=== PATIENT | male | born 1970 | race Caucasian/White ===

== ENCOUNTER 2023-08-11 17:00 | Inpatient (IN) | payer MEDICARE, OTHER ==
[~2023-08-11] VITALS: Ht 167.6 cm; Wt 67.1 kg
[2023-08-11 18:22] LABS: BASOPHILS # (AUTO) 0.1 K/uL (0.0-0.2); BASOPHILS % (AUTO) 0.8 % (0.0-2.0); EOSINOPHILS # (AUTO) 0.5 K/uL (0.0-0.7); EOSINOPHILS % (AUTO) 3.7 % (0.0-6.0); HEMATOCRIT 29 % (39-51); HEMOGLOBIN 9.1 g/dL (13.5-17.5); LYMPHOCYTES # (AUTO) 0.7 K/uL (0.8-4.8); MEAN CORPUSCULAR HEMOGLOBIN 27 PG (26.0-33.0); MEAN CORPUSCULAR HGB CONC 31 g/dl (31.0-36.0); MEAN CORPUSCULAR VOLUME 86 fL (80-96); MONOCYTES % (AUTO) 7.3 % (2.0-12.0); NEUTROPHILS # (AUTO) 11.4 K/uL (1.8-8.9); NEUTROPHILS % (AUTO) 83.2 % (43.0-81.0); PLATELET COUNT (AUTO) 548 K/uL (150-450); RED BLOOD CELL COUNT(AUTO) 3.37 MIL/uL (4.5-6.0); WHITE BLOOD COUNT (AUTO) 13.6 K/uL (4.3-11.0)
[2023-08-11 18:40] LABS: D-DIMER 0.98 mg/L(FEU (0.17-0.50); INR 1.01 (0.91-1.10); PARTIAL THROMBOPLASTIN TIME 24.8 SEC (24.3-34.3); PROTHROMBIN TIME 10.7 SECS (9.2-11.1)
[2023-08-11 18:51] LABS: LACTIC ACID 2.2 mmol/L (0.4-2.0)
[2023-08-11] MEDS ORDERED: BUPR2TAB3 SL (18:52)
[2023-08-11] MEDS ORDERED: SODI473S9 TP (18:52)
[2023-08-11] MEDS ORDERED: ASCO-340 PO (18:52)
[2023-08-11] MEDS ORDERED: CHOL200059 PO (18:52)
[2023-08-11] MEDS ORDERED: CETI10TA14 PO (18:52)
[2023-08-11] MEDS ORDERED: CYAN500T9 PO (18:52)
[2023-08-11] MEDS ORDERED: ALBU2.5V38 IH (18:52)
[2023-08-11] MEDS ORDERED: TIZA4TAB5 PO (18:52)
[2023-08-11] MEDS ORDERED: XEROFORM TP (18:52)
[2023-08-11] MEDS ORDERED: MAGN400O6 PO (18:52)
[2023-08-11] MEDS ORDERED: SENN-261 PO (18:52)
[2023-08-11] MEDS ORDERED: POLY17PO4 PO (18:52)
[2023-08-11] MEDS ORDERED: GABA600T12 PO (18:52)
[2023-08-11] MEDS ORDERED: NA P133E RC (18:52)
[2023-08-11] MEDS ORDERED: ASPI-1420 PO (18:52)
[2023-08-11] MEDS ORDERED: INSU100V7 SQ (18:52)
[2023-08-11] MEDS ORDERED: QUET50TA PO (18:52)
[2023-08-11] MEDS ORDERED: INSU100V39 SQ ×2 (18:52)
[2023-08-11] MEDS ORDERED: ACET-868 PO (18:52)
[2023-08-11] MEDS ORDERED: POVI3780 TP (18:52)
[2023-08-11] MEDS ORDERED: CALC3.7S BNOSTRILS (18:52)
[2023-08-11] MEDS ORDERED: CHLO473M5 MM (18:52)
[2023-08-11] MEDS ORDERED: LIPA1CAP15 PO (18:52)
[2023-08-11] MEDS ORDERED: QUET100T PO (18:52)
[2023-08-11] MEDS ORDERED: HYDR-4316 PO (18:52)
[2023-08-11] MEDS ORDERED: OXYC10TA49 PO (18:52)
[2023-08-11] MEDS ORDERED: ERGO800011 PO (18:52)
[2023-08-11] MEDS ORDERED: PANT40SU2 PO (18:52)
[2023-08-11] MEDS ORDERED: BISA10SU11 RC (18:52)
[2023-08-11] MEDS ORDERED: ACET-2605 PO (18:52)
[2023-08-11] MEDS ORDERED: DULO30CA2 PO (18:52)
[2023-08-11] MEDS ORDERED: DAPT350V IV (18:52)
[2023-08-11] MEDS ORDERED: OXYCODONE HCL PO (18:52)
[2023-08-11] MEDS ORDERED: FURO10SO IV (18:52)
[2023-08-11] MEDS ORDERED: LEVO25TA9 PO (18:52)
[2023-08-11] MEDS ORDERED: ATOR10TA GT (18:52)
[2023-08-11] MEDS ORDERED: MIRT-91 PO (18:52)
[2023-08-11] MEDS ORDERED: METO25TA6 PO (18:54)
[2023-08-11 18:57] LABS: ALANINE AMINOTRANSFERASE 27 U/L (12-78); ALBUMIN 2.4 g/dL (3.4-5.0); ALKALINE PHOSPHATASE 183 U/L (46-116); ASPARTATE AMINOTRANSFERASE 24 U/L (15-37); BILIRUBIN,DIRECT 0.1 mg/dL (0.0-0.2); BILIRUBIN,TOTAL 0.2 mg/dL (0.2-1.0); CALCIUM, SERUM 9.5 mg/dL (8.5-10.1); CHLORIDE 97 mmol/L (98-107); CREATININE 0.7 mg/dL (0.6-1.3); GLUCOSE 209 mg/dL (74-106); POTASSIUM 3.6 mmol/L (3.5-5.1); SODIUM SERUM 140 mmol/L (136-145); TOTAL PROTEIN, SERUM 7.7 g/dL (6.4-8.2); UREA NITROGEN, BLOOD 15 mg/dL (7-18)
[2023-08-11 19:06] LABS: CARBON DIOXIDE 38 mmol/L (21-32)
[2023-08-11] MEDS ORDERED: IOHEXOL-350 100 ML VIAL IV ONE (19:41)
[2023-08-11] MEDS ORDERED: IV NS 0.9% 250 ML IV ONE (19:41)
[2023-08-11] MEDS ORDERED: CT SWABBABLE VALVE TRANS SET 1 EA INFUS.SET MC ONE (19:41)
[2023-08-11 19:55] LABS: APPEARANCE,URINE CLEAR (CLEAR); BILIRUBIN,URINE NEGATIVE (NEGATIVE); BLOOD, URINE NEGATIVE Ery/uL (NEGATIVE); COLOR,URINE YELLOW (YELLOW); KETONES,URINE TRACE mg/dL (NEGATIVE); LEUKOCYTE ESTERASE ,URINE NEGATIVE (NEGATIVE); NITRITE, URINE NEGATIVE (NEGATIVE); PH,URINE 5.5 (5.0-8.0); PROTEIN,URINE 1+ mg/dl (NEGATIVE); UGLUCOSE 3+ mg/dL (NEGATIVE); UROBILINOGEN,URINE 0.2 EU/dL (0.2)
[2023-08-11] MEDS ORDERED: ZOLPIDEM TARTRATE 5 MG TABLET PO PRN (20:00)
[2023-08-11] MEDS ORDERED: MAGNESIUM HYDROXIDE 30 ML UDC PO PRN (20:00)
[2023-08-11] MEDS ORDERED: ACETAMINOPHEN 325 MG TABLET PO PRN (20:00)
[2023-08-11] MEDS ORDERED: ONDANSETRON HCL/PF 4 MG/2 ML VIAL IVP PRN (20:00)
[2023-08-11] MEDS ORDERED: Z GUARD REMEDY 4 OZ OINT TP PRN (20:00)
[2023-08-11] MEDS ORDERED: MAG HYDROX/AL HYDROX/SIMETH 30 ML UDC PO PRN (20:00)
[2023-08-11 20:03] LABS: ADD URINE CULTURE NO; BACTERIA,URINE None seen /HPF (None Seen); CALCIUM OXALATE CRYSTALS,UR Moderate /HPF (None Seen); MUCUS,URINE Few /LPF (None Seen); RBC,URINE 0-2 /HPF (0-2); WBC,URINE 0-2 /HPF (0-3)
[2023-08-11] MEDS: QUETIAPINE FUMARATE 100 MG TABLET PO SCH (21:00)
[2023-08-11] MEDS: CHLORHEXIDINE GLUCONATE 15 ML UDC MM SCH (21:00)
[2023-08-11] MEDS: TIZANIDINE HCL 4 MG TABLET PO SCH (21:00)
[2023-08-11] MEDS: DULOXETINE HCL 30 MG CAPSULE.DR PO SCH (21:00)
[2023-08-11] MEDS: GABAPENTIN 300 MG CAPSULE PO SCH (21:00)
[2023-08-11 22:00] VITALS: BP 126/75; TEMP 98.2; O2SAT 94
[2023-08-11] MEDS: ATORVASTATIN 10 MG TABLET GT SCH (22:00)
[2023-08-11] MEDS: SENNOSIDES 8.6 MG TABLET PO SCH (22:00)
[2023-08-11] MEDS: MIRTAZAPINE 15 MG TABLET PO SCH (22:00)
[2023-08-11] MEDS ORDERED: DEXTROSE 50%-WATER 50 ML DISP.SYRIN IV PRN (23:30)
[2023-08-12] VITALS (17 sets, daily range): BP systolic 141–165; BP diastolic 70–99; TEMP 97.9–99.3; O2SAT 92–100
[2023-08-12] MEDS: ALBUTEROL FS 2.5 MG/3 ML VIAL.NEB IH SCH ×5 (00:19→20:31)
[2023-08-12] MEDS ORDERED: VANCOMYCIN 1 GM /D5W 250 ML PB IV ONE (01:45)
[2023-08-12] MEDS: HYDROMORPHONE 1 MG/1 ML DISP.SYRIN IV PRN ×4 (01:51→21:27)
[2023-08-12] MEDS ORDERED: PIPERACI/TAZO 3.375GM/D5W 50ML PB IV ONE (01:57)
[2023-08-12] MEDS ORDERED: VANCOMYCIN 1.5 GM in IV D5W 500ml IV ONE (02:00)
[2023-08-12] MEDS ORDERED: ZOSYN IVPB 3.375 G in IV D5W 50ml IV SCH (02:00)
[2023-08-12] MEDS: TIZANIDINE HCL 4 MG TABLET PO SCH ×3 (05:00→21:25)
[2023-08-12] MEDS: QUETIAPINE FUMARATE 100 MG TABLET PO SCH ×3 (05:00→21:25)
[2023-08-12] MEDS: GABAPENTIN 300 MG CAPSULE PO SCH ×3 (05:00→21:25)
[2023-08-12 07:34] LABS: BASOPHILS # (AUTO) 0.1 K/uL (0.0-0.2); BASOPHILS % (AUTO) 0.7 % (0.0-2.0); EOSINOPHILS # (AUTO) 1.8 K/uL (0.0-0.7); EOSINOPHILS % (AUTO) 12.2 % (0.0-6.0); HEMATOCRIT 28 % (39-51); HEMOGLOBIN 8.6 g/dL (13.5-17.5); LYMPHOCYTES # (AUTO) 1.9 K/uL (0.8-4.8); LYMPHOCYTES % (AUTO) 12.9 % (20.0-44.0); MEAN CORPUSCULAR HEMOGLOBIN 27 PG (26.0-33.0); MEAN CORPUSCULAR HGB CONC 31 g/dl (31.0-36.0); MEAN CORPUSCULAR VOLUME 86 fL (80-96); MONOCYTES # (AUTO) 1.2 K/uL (0.1-1.30); MONOCYTES % (AUTO) 8.4 % (2.0-12.0); NEUTROPHILS # (AUTO) 9.7 K/uL (1.8-8.9); NEUTROPHILS % (AUTO) 65.8 % (43.0-81.0); PLATELET COUNT (AUTO) 543 K/uL (150-450); RED BLOOD CELL COUNT(AUTO) 3.25 MIL/uL (4.5-6.0); RED CELL DISTRIBUTION WIDTH 19.5 % (11.5-15.0); WHITE BLOOD COUNT (AUTO) 14.7 K/uL (4.3-11.0)
[2023-08-12 07:43] LABS: CALCIUM, SERUM 9.1 mg/dL (8.5-10.1); CREATININE 0.6 mg/dL (0.6-1.3); MAGNESIUM 1.6 mg/dL (1.8-2.4); POTASSIUM 3.6 mmol/L (3.5-5.1)
[2023-08-12] MEDS: LEVOTHYROXINE SODIUM 25 MCG TABLET PO SCH (07:43)
[2023-08-12] MEDS: DULOXETINE HCL 30 MG CAPSULE.DR PO SCH ×2 (08:38→21:25)
[2023-08-12] MEDS: PANTOPRAZOLE 40 MG/PACK PACK PO SCH (08:38)
[2023-08-12] MEDS: CHLORHEXIDINE GLUCONATE 15 ML UDC MM SCH ×2 (08:38→21:24)
[2023-08-12] MEDS: METOPROLOL TARTRATE 25 MG TABLET PO SCH ×2 (08:38→16:14)
[2023-08-12] MEDS: CHOLECALCIFEROL 1,000 UNIT TABLET (VIT D3) PO SCH ×2 (08:38→17:17)
[2023-08-12] MEDS: ASPIRIN EC 81 MG TABLET.DR PO SCH (08:41)
[2023-08-12] MEDS: BUPRENORPHINE HCL 2 MG TAB.SUBL SL SCH ×3 (08:41→16:14)
[2023-08-12] MEDS: POLYETHYLENE GLYCOL 3350 17 GM POWD.PACK PO SCH (08:43)
[2023-08-12] MEDS: HYDROCORTISONE 5 MG TABLET PO SCH ×2 (08:57→16:13)
[2023-08-12] MEDS: INSULIN REGULAR, HUMAN 100 UNIT/ML 3 ML VIAL SQ PRN ×4 (08:58→22:22)
[2023-08-12] MEDS: BLOOD SUGAR DIAGNOSTIC 1 EACH STRIP IN SCH ×4 (09:02→21:56)
[2023-08-12] MEDS: PIPERACILLIN /TAZOBACTAM 3.375 G in IV D5W 50 ML IV SCH ×3 (10:54→23:09)
[2023-08-12] MEDS: Magnesium 1GM/D5W 100ML PREMIX 100 ML IV SCH ×2 (11:35→12:34)
[2023-08-12] MEDS: VANCOMYCIN 1 GM in IV D5W 250ml IV SCH ×2 (11:58→18:31)
[2023-08-12] MEDS: DAKINS QUARTER STRENGTH (0.125%) 480 ML BOTTLE TOP SCH (12:00)
[2023-08-12] MEDS: LIPASE/PROTEASE/AMYLASE 1 EACH CAPSULE.DR PO SCH ×2 (12:19→17:17)
[2023-08-12] MEDS ORDERED: Magnesium 1GM/D5W 100ML PREMIX 100 ML IV SCH (14:30)
[2023-08-12] MEDS: CYANOCOBALAMIN 500 MCG TABLET PO SCH (17:17)
[2023-08-12] MEDS: ASCORBIC ACID 500 MG TABLET PO SCH (17:17)
[2023-08-12] MEDS: SENNOSIDES 8.6 MG TABLET PO SCH (21:25)
[2023-08-12] MEDS: ATORVASTATIN 10 MG TABLET GT SCH (21:26)
[2023-08-12] MEDS: MIRTAZAPINE 15 MG TABLET PO SCH (21:26)
[2023-08-13] VITALS (16 sets, daily range): BP systolic 92–122; BP diastolic 62–89; TEMP 97.5–98.6; O2SAT 94–100
[2023-08-13] MEDS: ALBUTEROL FS 2.5 MG/3 ML VIAL.NEB IH SCH ×4 (01:39→19:28)
[2023-08-13] MEDS ORDERED: IV NS 0.9% 500 ML IV ONE (02:00)
[2023-08-13] MEDS: VANCOMYCIN 1 GM in IV D5W 250ml IV SCH ×3 (02:39→11:00)
[2023-08-13] MEDS: GABAPENTIN 300 MG CAPSULE PO SCH ×3 (04:02→21:50)
[2023-08-13] MEDS: TIZANIDINE HCL 4 MG TABLET PO SCH ×3 (04:03→21:49)
[2023-08-13] MEDS: QUETIAPINE FUMARATE 100 MG TABLET PO SCH ×3 (04:03→21:52)
[2023-08-13] MEDS: PIPERACILLIN /TAZOBACTAM 3.375 G in IV D5W 50 ML IV SCH ×4 (05:01→23:43)
[2023-08-13] MEDS: BLOOD SUGAR DIAGNOSTIC 1 EACH STRIP IN SCH ×4 (06:34→22:00)
[2023-08-13] MEDS: LEVOTHYROXINE SODIUM 25 MCG TABLET PO SCH (06:34)
[2023-08-13] MEDS: HYDROCODONE/APAP 10/325MG TABLET PO PRN ×2 (06:35→16:40)
[2023-08-13] MEDS: INSULIN REGULAR, HUMAN 100 UNIT/ML 3 ML VIAL SQ PRN ×4 (06:37→23:30)
[2023-08-13 08:32] LABS: CALCIUM, SERUM 8.5 mg/dL (8.5-10.1); CREATININE 0.6 mg/dL (0.6-1.3); POTASSIUM 3.4 mmol/L (3.5-5.1)
[2023-08-13] MEDS: PANTOPRAZOLE 40 MG/PACK PACK PO SCH (08:52)
[2023-08-13] MEDS: DULOXETINE HCL 30 MG CAPSULE.DR PO SCH ×2 (08:52→21:52)
[2023-08-13] MEDS: ASPIRIN EC 81 MG TABLET.DR PO SCH (08:52)
[2023-08-13] MEDS: CHLORHEXIDINE GLUCONATE 15 ML UDC MM SCH ×2 (08:52→21:48)
[2023-08-13] MEDS: HYDROCORTISONE 5 MG TABLET PO SCH ×2 (08:52→16:40)
[2023-08-13] MEDS: CHOLECALCIFEROL 1,000 UNIT TABLET (VIT D3) PO SCH ×2 (08:53→17:10)
[2023-08-13] MEDS: LIPASE/PROTEASE/AMYLASE 1 EACH CAPSULE.DR PO SCH ×3 (08:53→17:09)
[2023-08-13] MEDS: POLYETHYLENE GLYCOL 3350 17 GM POWD.PACK PO SCH (08:58)
[2023-08-13] MEDS: BUPRENORPHINE HCL 2 MG TAB.SUBL SL SCH ×3 (08:58→16:41)
[2023-08-13] MEDS: METOPROLOL TARTRATE 25 MG TABLET PO SCH ×3 (08:59→16:53)
[2023-08-13] MEDS: DAKINS QUARTER STRENGTH (0.125%) 480 ML BOTTLE TOP SCH (09:00)
[2023-08-13] MEDS ORDERED: POTASSIUM CHLORIDE 20 MEQ TAB.PRT.SR PO ONE (10:00)
[2023-08-13] MEDS ORDERED: POTASSIUM CHLORIDE 20 MEQ POWDER PACKET PO ONE (11:00)
[2023-08-13] MEDS: ASCORBIC ACID 500 MG TABLET PO SCH (17:09)
[2023-08-13] MEDS: CYANOCOBALAMIN 500 MCG TABLET PO SCH (17:10)
[2023-08-13] MEDS: SENNOSIDES 8.6 MG TABLET PO SCH (21:51)
[2023-08-13] MEDS: ATORVASTATIN 10 MG TABLET GT SCH (21:53)
[2023-08-13] MEDS: MIRTAZAPINE 15 MG TABLET PO SCH (21:56)
[2023-08-14] VITALS (16 sets, daily range): BP systolic 101–135; BP diastolic 67–85; TEMP 97.6–98.6; O2SAT 95–99
[2023-08-14] MEDS: ALBUTEROL FS 2.5 MG/3 ML VIAL.NEB IH SCH ×4 (00:53→20:25)
[2023-08-14] MEDS: QUETIAPINE FUMARATE 100 MG TABLET PO SCH ×3 (04:44→21:40)
[2023-08-14] MEDS: TIZANIDINE HCL 4 MG TABLET PO SCH ×3 (04:46→21:41)
[2023-08-14] MEDS: GABAPENTIN 300 MG CAPSULE PO SCH ×3 (04:47→21:40)
[2023-08-14] MEDS: PIPERACILLIN /TAZOBACTAM 3.375 G in IV D5W 50 ML IV SCH ×3 (06:35→18:39)
[2023-08-14 07:06] LABS: CALCIUM, SERUM 8.7 mg/dL (8.5-10.1); CREATININE 0.6 mg/dL (0.6-1.3); POTASSIUM 4.1 mmol/L (3.5-5.1)
[2023-08-14] MEDS: BLOOD SUGAR DIAGNOSTIC 1 EACH STRIP IN SCH ×6 (07:53→22:00)
[2023-08-14] MEDS: LEVOTHYROXINE SODIUM 25 MCG TABLET PO SCH (07:59)
[2023-08-14] MEDS: LIPASE/PROTEASE/AMYLASE 1 EACH CAPSULE.DR PO SCH ×3 (07:59→18:39)
[2023-08-14] MEDS: INSULIN REGULAR, HUMAN 100 UNIT/ML 3 ML VIAL SQ PRN ×4 (08:01→23:54)
[2023-08-14] MEDS: POLYETHYLENE GLYCOL 3350 17 GM POWD.PACK PO SCH (08:52)
[2023-08-14] MEDS: ASPIRIN EC 81 MG TABLET.DR PO SCH (08:52)
[2023-08-14] MEDS: PANTOPRAZOLE 40 MG/PACK PACK PO SCH (08:52)
[2023-08-14] MEDS: CHOLECALCIFEROL 1,000 UNIT TABLET (VIT D3) PO SCH ×2 (08:53→18:39)
[2023-08-14] MEDS: HYDROCORTISONE 5 MG TABLET PO SCH ×2 (08:56→16:43)
[2023-08-14] MEDS: DULOXETINE HCL 30 MG CAPSULE.DR PO SCH ×2 (08:56→21:41)
[2023-08-14] MEDS: BUPRENORPHINE HCL 2 MG TAB.SUBL SL SCH ×3 (08:56→16:43)
[2023-08-14] MEDS: METOPROLOL TARTRATE 25 MG TABLET PO SCH ×2 (08:58→16:43)
[2023-08-14] MEDS: DAKINS QUARTER STRENGTH (0.125%) 480 ML BOTTLE TOP SCH (08:59)
[2023-08-14] MEDS: CHLORHEXIDINE GLUCONATE 15 ML UDC MM SCH ×2 (09:00→21:41)
[2023-08-14] MEDS ORDERED: DEXTROSE 50%-WATER 50 ML DISP.SYRIN IV PRN (10:30)
[2023-08-14] MEDS: HYDROCODONE/APAP 10/325MG TABLET PO PRN (10:53)
[2023-08-14] MEDS ORDERED: VANCOMYCIN HCL 0.75 GM in IV D5W 250 ML IV SCH (13:00)
[2023-08-14] MEDS ORDERED: DOSE PER PHARMACY (MD SPECIFY MEDICATION) 1 EA IV PRN (17:00)
[2023-08-14] MEDS: ASCORBIC ACID 500 MG TABLET PO SCH (18:40)
[2023-08-14] MEDS: CYANOCOBALAMIN 500 MCG TABLET PO SCH (18:40)
[2023-08-14] MEDS: DAPTOMYCIN 500 MG in IV NS 0.9% 50 ML IV SCH (18:46)
[2023-08-14] MEDS: SENNOSIDES 8.6 MG TABLET PO SCH (21:40)
[2023-08-14] MEDS: MIRTAZAPINE 15 MG TABLET PO SCH (21:47)
[2023-08-15] VITALS (15 sets, daily range): BP systolic 126–150; BP diastolic 72–95; TEMP 98.4–99; O2SAT 91–99
[2023-08-15] MEDS: BLOOD SUGAR DIAGNOSTIC 1 EACH STRIP IN SCH ×9 (00:09→22:55)
[2023-08-15] MEDS: PIPERACILLIN /TAZOBACTAM 3.375 G in IV D5W 50 ML IV SCH ×4 (00:16→18:13)
[2023-08-15] MEDS: ALBUTEROL FS 2.5 MG/3 ML VIAL.NEB IH SCH ×4 (01:35→19:51)
[2023-08-15] MEDS: GABAPENTIN 300 MG CAPSULE PO SCH ×3 (06:28→21:06)
[2023-08-15] MEDS: TIZANIDINE HCL 4 MG TABLET PO SCH ×3 (06:29→21:07)
[2023-08-15] MEDS: QUETIAPINE FUMARATE 100 MG TABLET PO SCH ×3 (06:29→21:06)
[2023-08-15] MEDS: INSULIN REGULAR, HUMAN 100 UNIT/ML 3 ML VIAL SQ PRN ×4 (06:39→17:39)
[2023-08-15 07:46] LABS: CALCIUM, SERUM 9.3 mg/dL (8.5-10.1); CREATININE 0.6 mg/dL (0.6-1.3); POTASSIUM 4.1 mmol/L (3.5-5.1)
[2023-08-15] MEDS: CHOLECALCIFEROL 1,000 UNIT TABLET (VIT D3) PO SCH ×2 (08:47→18:00)
[2023-08-15] MEDS: DULOXETINE HCL 30 MG CAPSULE.DR PO SCH ×2 (08:48→21:06)
[2023-08-15] MEDS: ASPIRIN EC 81 MG TABLET.DR PO SCH (08:48)
[2023-08-15] MEDS: LIPASE/PROTEASE/AMYLASE 1 EACH CAPSULE.DR PO SCH ×3 (08:48→18:01)
[2023-08-15] MEDS: HYDROCORTISONE 5 MG TABLET PO SCH ×2 (08:48→18:00)
[2023-08-15] MEDS: PANTOPRAZOLE 40 MG/PACK PACK PO SCH (08:48)
[2023-08-15] MEDS: POLYETHYLENE GLYCOL 3350 17 GM POWD.PACK PO SCH (08:49)
[2023-08-15] MEDS: METOPROLOL TARTRATE 25 MG TABLET PO SCH ×2 (08:49→18:01)
[2023-08-15] MEDS: LEVOTHYROXINE SODIUM 25 MCG TABLET PO SCH (08:53)
[2023-08-15] MEDS: CHLORHEXIDINE GLUCONATE 15 ML UDC MM SCH ×2 (08:54→21:06)
[2023-08-15] MEDS: DAKINS QUARTER STRENGTH (0.125%) 480 ML BOTTLE TOP SCH (08:54)
[2023-08-15] MEDS: BUPRENORPHINE HCL 2 MG TAB.SUBL SL SCH ×3 (08:54→18:00)
[2023-08-15] MEDS: NITROGLYCERIN 0.4 MG/TAB BOTTLE SL PRN ×2 (14:34→14:50)
[2023-08-15] MEDS: HYDROCODONE/APAP 10/325MG TABLET PO PRN ×2 (15:08→22:31)
[2023-08-15] MEDS: CYANOCOBALAMIN 500 MCG TABLET PO SCH (18:01)
[2023-08-15] MEDS: ASCORBIC ACID 500 MG TABLET PO SCH (18:07)
[2023-08-15] MEDS: DAPTOMYCIN 500 MG in IV NS 0.9% 50 ML IV SCH (19:02)
[2023-08-15] MEDS: SENNOSIDES 8.6 MG TABLET PO SCH ×2 (21:57→22:00)
[2023-08-15] MEDS: MIRTAZAPINE 15 MG TABLET PO SCH (21:57)
[2023-08-16] VITALS (14 sets, daily range): BP systolic 118–160; BP diastolic 77–100; TEMP 97.9–98.2; O2SAT 92–100
[2023-08-16] MEDS: PIPERACILLIN /TAZOBACTAM 3.375 G in IV D5W 50 ML IV SCH ×5 (00:10→23:28)
[2023-08-16] MEDS: ALBUTEROL FS 2.5 MG/3 ML VIAL.NEB IH SCH ×4 (01:48→19:23)
[2023-08-16] MEDS ORDERED: DEXTROSE 50%-WATER 50 ML DISP.SYRIN IV PRN (03:30)
[2023-08-16] MEDS: GABAPENTIN 300 MG CAPSULE PO SCH ×3 (04:43→20:46)
[2023-08-16] MEDS: TIZANIDINE HCL 4 MG TABLET PO SCH ×3 (04:43→20:45)
[2023-08-16] MEDS: QUETIAPINE FUMARATE 100 MG TABLET PO SCH ×3 (04:44→20:44)
[2023-08-16] MEDS ORDERED: BLOOD SUGAR DIAGNOSTIC 1 EACH STRIP IN SCH (07:30)
[2023-08-16] MEDS: BLOOD SUGAR DIAGNOSTIC 1 EACH STRIP IN SCH ×4 (07:43→22:00)
[2023-08-16] MEDS: LEVOTHYROXINE SODIUM 25 MCG TABLET PO SCH (07:46)
[2023-08-16] MEDS: LIPASE/PROTEASE/AMYLASE 1 EACH CAPSULE.DR PO SCH ×3 (07:46→17:18)
[2023-08-16] MEDS: INSULIN REGULAR, HUMAN 100 UNIT/ML 3 ML VIAL SQ PRN ×4 (07:54→22:01)
[2023-08-16 08:00] LABS: CALCIUM, SERUM 9.1 mg/dL (8.5-10.1); CREATININE 0.6 mg/dL (0.6-1.3)
[2023-08-16] MEDS: HYDROCORTISONE 5 MG TABLET PO SCH ×2 (08:23→16:09)
[2023-08-16] MEDS: CHLORHEXIDINE GLUCONATE 15 ML UDC MM SCH ×2 (08:23→20:44)
[2023-08-16] MEDS: PANTOPRAZOLE 40 MG/PACK PACK PO SCH (08:23)
[2023-08-16] MEDS: POLYETHYLENE GLYCOL 3350 17 GM POWD.PACK PO SCH (08:23)
[2023-08-16] MEDS: BUPRENORPHINE HCL 2 MG TAB.SUBL SL SCH ×3 (08:24→16:09)
[2023-08-16] MEDS: CHOLECALCIFEROL 1,000 UNIT TABLET (VIT D3) PO SCH ×2 (08:24→17:19)
[2023-08-16] MEDS: METOPROLOL TARTRATE 25 MG TABLET PO SCH ×2 (08:25→16:09)
[2023-08-16] MEDS: ASPIRIN EC 81 MG TABLET.DR PO SCH (08:25)
[2023-08-16] MEDS: DULOXETINE HCL 30 MG CAPSULE.DR PO SCH ×2 (08:25→20:44)
[2023-08-16] MEDS: DAKINS QUARTER STRENGTH (0.125%) 480 ML BOTTLE TOP SCH (08:39)
[2023-08-16 11:30] LABS: BASOPHILS # (AUTO) 0.1 K/uL (0.0-0.2); BASOPHILS % (AUTO) 0.6 % (0.0-2.0); EOSINOPHILS # (AUTO) 1.4 K/uL (0.0-0.7); EOSINOPHILS % (AUTO) 11.7 % (0.0-6.0); HEMATOCRIT 28 % (39-51); HEMOGLOBIN 8.7 g/dL (13.5-17.5); LYMPHOCYTES # (AUTO) 1.3 K/uL (0.8-4.8); LYMPHOCYTES % (AUTO) 10.8 % (20.0-44.0); MEAN CORPUSCULAR HEMOGLOBIN 27 PG (26.0-33.0); MEAN CORPUSCULAR HGB CONC 31 g/dl (31.0-36.0); MEAN CORPUSCULAR VOLUME 86 fL (80-96); MONOCYTES # (AUTO) 1.1 K/uL (0.1-1.30); MONOCYTES % (AUTO) 9.1 % (2.0-12.0); NEUTROPHILS # (AUTO) 7.9 K/uL (1.8-8.9); NEUTROPHILS % (AUTO) 67.8 % (43.0-81.0); PLATELET COUNT (AUTO) 526 K/uL (150-450); RED BLOOD CELL COUNT(AUTO) 3.24 MIL/uL (4.5-6.0); WHITE BLOOD COUNT (AUTO) 11.7 K/uL (4.3-11.0)
[2023-08-16 11:36] LABS: CALCIUM, SERUM 8.9 mg/dL (8.5-10.1); CREATININE 0.7 mg/dL (0.6-1.3); POTASSIUM 4.2 mmol/L (3.5-5.1)
[2023-08-16] MEDS: LORAZEPAM INJ 2 MG/ML VIAL IV PRN (16:26)
[2023-08-16] MEDS: CYANOCOBALAMIN 500 MCG TABLET PO SCH (17:18)
[2023-08-16] MEDS: ASCORBIC ACID 500 MG TABLET PO SCH (17:18)
[2023-08-16] MEDS: DAPTOMYCIN 500 MG in IV NS 0.9% 50 ML IV SCH (17:22)
[2023-08-16] MEDS: SENNOSIDES 8.6 MG TABLET PO SCH (21:32)
[2023-08-16] MEDS: MIRTAZAPINE 15 MG TABLET PO SCH (21:32)
[2023-08-17] VITALS (12 sets, daily range): BP systolic 120–173; BP diastolic 83–102; TEMP 98–99.4; O2SAT 87–99
[2023-08-17] MEDS: ALBUTEROL FS 2.5 MG/3 ML VIAL.NEB IH SCH ×4 (01:37→19:51)
[2023-08-17] MEDS: LORAZEPAM INJ 2 MG/ML VIAL IV PRN ×2 (03:34→08:18)
[2023-08-17] MEDS: GABAPENTIN 300 MG CAPSULE PO SCH ×4 (04:20→21:00)
[2023-08-17] MEDS: QUETIAPINE FUMARATE 100 MG TABLET PO SCH ×4 (04:21→21:00)
[2023-08-17] MEDS: TIZANIDINE HCL 4 MG TABLET PO SCH ×4 (04:21→21:00)
[2023-08-17] MEDS: PIPERACILLIN /TAZOBACTAM 3.375 G in IV D5W 50 ML IV SCH ×4 (05:00→23:48)
[2023-08-17] MEDS: NITROGLYCERIN 0.4 MG/TAB BOTTLE SL PRN (05:12)
[2023-08-17] MEDS ORDERED: HYDROMORPHONE 1 MG/1 ML DISP.SYRIN IV ONE (06:00)
[2023-08-17] MEDS ORDERED: LORAZEPAM INJ 2 MG/ML VIAL IV ONE (06:30)
[2023-08-17] MEDS: LEVOTHYROXINE SODIUM 25 MCG TABLET PO SCH (07:30)
[2023-08-17 07:53] LABS: ABG BASE EXCESS 1.5 mmol/L; ABG PH 7.325 (7.350-7.450); ABG PO2 128.1 mmHg (75.0-100.0); ABG TOTAL HEMOGLOBIN 8.9 G/dL (13.5-18.0); AaDO2 529.9 mmHg; COHb 0.9 % (0.5-1.5); MetHb 0.5 % (0.0-1.5); O2Hb 96.6 % (94.0-97.0); SITE, ABG Left Brachial; VENT MODE, BG 5 MINUTES 100% AMBU BAG
[2023-08-17] MEDS: LIPASE/PROTEASE/AMYLASE 1 EACH CAPSULE.DR PO SCH ×3 (08:00→17:33)
[2023-08-17] MEDS: BUPRENORPHINE HCL 2 MG TAB.SUBL SL SCH ×3 (08:19→17:08)
[2023-08-17] MEDS: BLOOD SUGAR DIAGNOSTIC 1 EACH STRIP IN SCH ×4 (08:36→22:51)
[2023-08-17] MEDS: METOPROLOL TARTRATE 25 MG TABLET PO SCH ×2 (09:00→17:00)
[2023-08-17] MEDS: POLYETHYLENE GLYCOL 3350 17 GM POWD.PACK PO SCH (09:00)
[2023-08-17] MEDS: ASPIRIN EC 81 MG TABLET.DR PO SCH (09:00)
[2023-08-17] MEDS: PANTOPRAZOLE 40 MG/PACK PACK PO SCH (09:00)
[2023-08-17] MEDS: HYDROCORTISONE 5 MG TABLET PO SCH ×2 (09:00→17:00)
[2023-08-17] MEDS: DULOXETINE HCL 30 MG CAPSULE.DR PO SCH ×2 (09:00→21:00)
[2023-08-17] MEDS: CHOLECALCIFEROL 1,000 UNIT TABLET (VIT D3) PO SCH ×2 (09:00→17:33)
[2023-08-17] MEDS ORDERED: LABETALOL 20 MG/4 ML VIAL IV ONE (09:30)
[2023-08-17] MEDS ORDERED: LORAZEPAM INJ 2 MG/ML VIAL IV PRN (09:30)
[2023-08-17] MEDS ORDERED: FUROSEMIDE 40 MG/4 ML VIAL IV ONE (09:30)
[2023-08-17] MEDS: INSULIN REGULAR, HUMAN 100 UNIT/ML 3 ML VIAL SQ PRN ×2 (10:18→23:13)
[2023-08-17] MEDS: CHLORHEXIDINE GLUCONATE 15 ML UDC MM SCH ×2 (10:53→21:32)
[2023-08-17] MEDS: DAKINS QUARTER STRENGTH (0.125%) 480 ML BOTTLE TOP SCH (10:54)
[2023-08-17] MEDS: diphenhydrAMINE HCL 50 MG/ML VIAL IV PRN ×2 (12:26→23:50)
[2023-08-17] MEDS: ENOXAPARIN SODIUM 40 MG/0.4 ML DISP.SYRIN SQ SCH (12:33)
[2023-08-17] MEDS: DAPTOMYCIN 500 MG in IV NS 0.9% 50 ML IV SCH (15:02)
[2023-08-17] MEDS ORDERED: CT SWABBABLE VALVE TRANS SET 1 EA INFUS.SET MC ONE (15:56)
[2023-08-17] MEDS ORDERED: IV NS 0.9% 250 ML IV ONE (15:56)
[2023-08-17] MEDS ORDERED: IOHEXOL-350 100 ML VIAL IV ONE (15:56)
[2023-08-17] MEDS: ASCORBIC ACID 500 MG TABLET PO SCH (17:33)
[2023-08-17] MEDS: CYANOCOBALAMIN 500 MCG TABLET PO SCH (17:33)
[2023-08-17 20:19] LABS: BASOPHILS # (AUTO) 0.1 K/uL (0.0-0.2); BASOPHILS % (AUTO) 0.3 % (0.0-2.0); EOSINOPHILS # (AUTO) 2.6 K/uL (0.0-0.7); EOSINOPHILS % (AUTO) 12.7 % (0.0-6.0); HEMATOCRIT 27 % (39-51); HEMOGLOBIN 8.2 g/dL (13.5-17.5); LYMPHOCYTES # (AUTO) 2.7 K/uL (0.8-4.8); MEAN CORPUSCULAR HEMOGLOBIN 26 PG (26.0-33.0); MEAN CORPUSCULAR HGB CONC 30 g/dl (31.0-36.0); MEAN CORPUSCULAR VOLUME 87 fL (80-96); MONOCYTES # (AUTO) 2.4 K/uL (0.1-1.30); NEUTROPHILS # (AUTO) 12.7 K/uL (1.8-8.9); PLATELET COUNT (AUTO) 527 K/uL (150-450); RED BLOOD CELL COUNT(AUTO) 3.15 MIL/uL (4.5-6.0); RED CELL DISTRIBUTION WIDTH 19.1 % (11.5-15.0); WHITE BLOOD COUNT (AUTO) 20.5 K/uL (4.3-11.0)
[2023-08-17 20:25] LABS: CALCIUM, SERUM 9.3 mg/dL (8.5-10.1); CREATININE 0.7 mg/dL (0.6-1.3); POTASSIUM 3.3 mmol/L (3.5-5.1)
[2023-08-17 20:45] LABS: ANISOCYTOSIS 1+; BAND % (MANUAL) 1 % (0.0-5.0); EOSINOPHILS % (MANUAL) 11 % (0-4); HYPOCHROMASIA 1+; LYMPHOCYTES % (MANUAL) 9 % (16-48); MONOCYTES % (MANUAL) 8 % (0-11.0); NEUTROPHILS % (MANUAL) 71 (42-76); PLATELET ESTIMATE INCREASED
[2023-08-17 20:46] LABS: TARGET CELLS 2+
[2023-08-17] MEDS: SENNOSIDES 8.6 MG TABLET PO SCH (21:24)
[2023-08-17] MEDS: MIRTAZAPINE 15 MG TABLET PO SCH (21:24)
[2023-08-18] MEDS: ALBUTEROL FS 2.5 MG/3 ML VIAL.NEB IH SCH ×4 (01:40→19:30)
[2023-08-18 04:00] VITALS: BP 143/95; TEMP 98.9; O2SAT 98
[2023-08-18] MEDS: TIZANIDINE HCL 4 MG TABLET PO SCH ×3 (05:00→21:00)
[2023-08-18] MEDS: QUETIAPINE FUMARATE 100 MG TABLET PO SCH ×3 (05:00→21:00)
[2023-08-18] MEDS: GABAPENTIN 300 MG CAPSULE PO SCH ×3 (05:00→21:00)
[2023-08-18] MEDS: PIPERACILLIN /TAZOBACTAM 3.375 G in IV D5W 50 ML IV SCH (05:59)
[2023-08-18 07:10] LABS: CALCIUM, SERUM 9.7 mg/dL (8.5-10.1); CREATININE 0.7 mg/dL (0.6-1.3)
[2023-08-18] MEDS: BLOOD SUGAR DIAGNOSTIC 1 EACH STRIP IN SCH ×4 (07:26→22:02)
[2023-08-18] MEDS: LEVOTHYROXINE SODIUM 25 MCG TABLET PO SCH (07:30)
[2023-08-18] MEDS: diphenhydrAMINE HCL 50 MG/ML VIAL IV PRN (07:38)
[2023-08-18] MEDS: LIPASE/PROTEASE/AMYLASE 1 EACH CAPSULE.DR PO SCH ×3 (07:46→17:32)
[2023-08-18] MEDS: HYDROCORTISONE 5 MG TABLET PO SCH ×2 (08:24→17:00)
[2023-08-18] MEDS: METOPROLOL TARTRATE 25 MG TABLET PO SCH ×2 (08:24→17:00)
[2023-08-18] MEDS: ASPIRIN EC 81 MG TABLET.DR PO SCH (08:24)
[2023-08-18] MEDS: DULOXETINE HCL 30 MG CAPSULE.DR PO SCH ×2 (08:24→21:00)
[2023-08-18] MEDS: CHOLECALCIFEROL 1,000 UNIT TABLET (VIT D3) PO SCH ×2 (08:25→17:32)
[2023-08-18] MEDS: POLYETHYLENE GLYCOL 3350 17 GM POWD.PACK PO SCH (08:25)
[2023-08-18] MEDS: PANTOPRAZOLE 40 MG/PACK PACK PO SCH (08:25)
[2023-08-18] MEDS: BUPRENORPHINE HCL 2 MG TAB.SUBL SL SCH ×3 (08:25→17:00)
[2023-08-18] MEDS: DAKINS QUARTER STRENGTH (0.125%) 480 ML BOTTLE TOP SCH (08:26)
[2023-08-18] MEDS: CHLORHEXIDINE GLUCONATE 15 ML UDC MM SCH ×2 (08:27→20:13)
[2023-08-18] MEDS ORDERED: FUROSEMIDE 40 MG/4 ML VIAL IV SCH (09:00)
[2023-08-18] MEDS: POTASSIUM CL. PREMIX PERIPHER. 50 ML IV SCH ×6 (09:16→17:49)
[2023-08-18] MEDS: LORAZEPAM INJ 2 MG/ML VIAL IV PRN ×2 (09:17→21:36)
[2023-08-18] MEDS ORDERED: KETOROLAC TROMETHAMINE INJ 30 MG/ML VIAL IV PRN (09:30)
[2023-08-18] MEDS ORDERED: POTASSIUM CL. PREMIX PERIPHER. 50 ML IV SCH ×2 (10:00→12:30)
[2023-08-18] MEDS ORDERED: KETOROLAC TROMETHAMINE INJ 30 MG/ML VIAL IM PRN (10:30)
[2023-08-18] MEDS: KETOROLAC TROMETHAMINE INJ 30 MG/ML VIAL IV PRN ×2 (11:09→20:25)
[2023-08-18] MEDS: ENOXAPARIN SODIUM 40 MG/0.4 ML DISP.SYRIN SQ SCH (11:30)
[2023-08-18 12:03] VITALS: BP 146/83; TEMP 98.2; O2SAT 99
[2023-08-18 12:17] LABS: BASOPHILS # (AUTO) 0.1 K/uL (0.0-0.2); BASOPHILS % (AUTO) 0.8 % (0.0-2.0); EOSINOPHILS # (AUTO) 1.4 K/uL (0.0-0.7); EOSINOPHILS % (AUTO) 8.2 % (0.0-6.0); HEMATOCRIT 29 % (39-51); HEMOGLOBIN 8.6 g/dL (13.5-17.5); LYMPHOCYTES % (AUTO) 11.7 % (20.0-44.0); MEAN CORPUSCULAR HEMOGLOBIN 26 PG (26.0-33.0); MEAN CORPUSCULAR HGB CONC 30 g/dl (31.0-36.0); MEAN CORPUSCULAR VOLUME 89 fL (80-96); MONOCYTES # (AUTO) 1.8 K/uL (0.1-1.30); MONOCYTES % (AUTO) 10.7 % (2.0-12.0); NEUTROPHILS # (AUTO) 11.5 K/uL (1.8-8.9); NEUTROPHILS % (AUTO) 68.6 % (43.0-81.0); PLATELET COUNT (AUTO) 558 K/uL (150-450); RED BLOOD CELL COUNT(AUTO) 3.25 MIL/uL (4.5-6.0); RED CELL DISTRIBUTION WIDTH 19.1 % (11.5-15.0); WHITE BLOOD COUNT (AUTO) 16.8 K/uL (4.3-11.0)
[2023-08-18] MEDS: DAPTOMYCIN 500 MG in IV NS 0.9% 50 ML IV SCH (13:46)
[2023-08-18] MEDS: PIPERACILLIN /TAZOBACTAM 3.375 G in IV D5W 100 ML IV SCH ×2 (13:46→20:13)
[2023-08-18 15:39] LABS: CALCIUM, SERUM 9.7 mg/dL (8.5-10.1); CREATININE 0.7 mg/dL (0.6-1.3); POTASSIUM 3.5 mmol/L (3.5-5.1)
[2023-08-18 16:30] VITALS: BP 148/95; TEMP 98.6; O2SAT 98
[2023-08-18] MEDS: CYANOCOBALAMIN 500 MCG TABLET PO SCH (17:32)
[2023-08-18] MEDS: ASCORBIC ACID 500 MG TABLET PO SCH (17:32)
[2023-08-18] MEDS ORDERED: LORAZEPAM 4 MG/ML VIAL IV PRN (18:00)
[2023-08-18] MEDS: INSULIN REGULAR, HUMAN 100 UNIT/ML 3 ML VIAL SQ PRN ×2 (18:02→21:14)
[2023-08-18 20:00] VITALS: BP 163/111; TEMP 98.2; O2SAT 100
[2023-08-18] MEDS: MIRTAZAPINE 15 MG TABLET PO SCH (22:00)
[2023-08-18] MEDS: SENNOSIDES 8.6 MG TABLET PO SCH (22:00)
[2023-08-19] VITALS (12 sets, daily range): BP systolic 105–177; BP diastolic 59–100; TEMP 97.4–99.1; O2SAT 97–100
[2023-08-19] MEDS: PIPERACILLIN /TAZOBACTAM 3.375 G in IV D5W 100 ML IV SCH ×3 (04:10→21:40)
[2023-08-19] MEDS: ALBUTEROL FS 2.5 MG/3 ML VIAL.NEB IH SCH ×2 (04:15→07:35)
[2023-08-19] MEDS: QUETIAPINE FUMARATE 100 MG TABLET PO SCH ×3 (05:00→21:00)
[2023-08-19] MEDS: TIZANIDINE HCL 4 MG TABLET PO SCH ×3 (05:00→21:00)
[2023-08-19] MEDS: GABAPENTIN 300 MG CAPSULE PO SCH ×3 (05:00→21:00)
[2023-08-19] MEDS: LEVOTHYROXINE SODIUM 25 MCG TABLET PO SCH (07:30)
[2023-08-19] MEDS: BLOOD SUGAR DIAGNOSTIC 1 EACH STRIP IN SCH ×3 (07:30→18:48)
[2023-08-19] MEDS: LIPASE/PROTEASE/AMYLASE 1 EACH CAPSULE.DR PO SCH ×3 (08:00→18:00)
[2023-08-19] MEDS: METOPROLOL TARTRATE 25 MG TABLET PO SCH ×2 (08:35→17:00)
[2023-08-19] MEDS: HYDROCORTISONE 5 MG TABLET PO SCH ×2 (08:35→17:00)
[2023-08-19] MEDS: ASPIRIN EC 81 MG TABLET.DR PO SCH (08:35)
[2023-08-19] MEDS: DULOXETINE HCL 30 MG CAPSULE.DR PO SCH ×2 (08:35→21:00)
[2023-08-19] MEDS: POLYETHYLENE GLYCOL 3350 17 GM POWD.PACK PO SCH (08:35)
[2023-08-19] MEDS: PANTOPRAZOLE 40 MG/PACK PACK PO SCH (08:36)
[2023-08-19] MEDS: CHOLECALCIFEROL 1,000 UNIT TABLET (VIT D3) PO SCH ×2 (08:36→18:00)
[2023-08-19] MEDS: BUPRENORPHINE HCL 2 MG TAB.SUBL SL SCH ×4 (08:36→17:47)
[2023-08-19] MEDS: CHLORHEXIDINE GLUCONATE 15 ML UDC MM SCH ×2 (08:57→21:40)
[2023-08-19] MEDS: diphenhydrAMINE HCL 50 MG/ML VIAL IV PRN (08:57)
[2023-08-19] MEDS: INSULIN REGULAR, HUMAN 100 UNIT/ML 3 ML VIAL SQ PRN ×3 (09:00→18:50)
[2023-08-19] MEDS: DAKINS QUARTER STRENGTH (0.125%) 480 ML BOTTLE TOP SCH (09:02)
[2023-08-19 12:07] LABS: ABG BASE EXCESS 5.6 mmol/L; ABG OXYGEN SATURATION 94.6 % (92.0-98.5); ABG PCO2 47.2 mmHg (35.0-45.0); ABG PH 7.429 (7.350-7.450); ABG PO2 70.8 mmHg (75.0-100.0); ABG TOTAL HEMOGLOBIN 8.5 G/dL (13.5-18.0); COHb 0.3 % (0.5-1.5); MetHb 0.3 % (0.0-1.5); SITE, ABG Right Radial; VENT MODE, BG CA 40%
[2023-08-19] MEDS: ENOXAPARIN SODIUM 40 MG/0.4 ML DISP.SYRIN SQ SCH (13:06)
[2023-08-19] MEDS ORDERED: DEXTROSE 50%-WATER 50 ML DISP.SYRIN IV PRN (14:00)
[2023-08-19] MEDS: DAPTOMYCIN 500 MG in IV NS 0.9% 50 ML IV SCH (14:35)
[2023-08-19] MEDS: LABETALOL 20 MG/4 ML VIAL IV PRN (16:32)
[2023-08-19] MEDS: ASCORBIC ACID 500 MG TABLET PO SCH (18:00)
[2023-08-19] MEDS: CYANOCOBALAMIN 500 MCG TABLET PO SCH (18:00)
[2023-08-19] MEDS: KETOROLAC TROMETHAMINE INJ 30 MG/ML VIAL IV PRN (18:41)
[2023-08-19] MEDS: MIRTAZAPINE 15 MG TABLET PO SCH (21:54)
[2023-08-19] MEDS: SENNOSIDES 8.6 MG TABLET PO SCH (21:54)
[2023-08-19] MEDS: LORAZEPAM INJ 2 MG/ML VIAL IV PRN (22:11)
[2023-08-20] VITALS (11 sets, daily range): BP systolic 153–177; BP diastolic 85–103; TEMP 97.1–98.6; O2SAT 97–100
[2023-08-20] MEDS: LABETALOL 20 MG/4 ML VIAL IV PRN ×2 (00:21→22:17)
[2023-08-20] MEDS: INSULIN REGULAR, HUMAN 100 UNIT/ML 3 ML VIAL SQ PRN ×2 (00:42→05:54)
[2023-08-20] MEDS: BLOOD SUGAR DIAGNOSTIC 1 EACH STRIP IN SCH ×4 (00:42→19:14)
[2023-08-20] MEDS: KETOROLAC TROMETHAMINE INJ 30 MG/ML VIAL IV PRN (02:56)
[2023-08-20] MEDS: GABAPENTIN 300 MG CAPSULE PO SCH ×3 (05:00→20:21)
[2023-08-20] MEDS: QUETIAPINE FUMARATE 100 MG TABLET PO SCH ×3 (05:00→20:21)
[2023-08-20] MEDS: TIZANIDINE HCL 4 MG TABLET PO SCH ×3 (05:00→20:21)
[2023-08-20] MEDS: PIPERACILLIN /TAZOBACTAM 3.375 G in IV D5W 100 ML IV SCH ×3 (05:23→20:20)
[2023-08-20] MEDS: LEVOTHYROXINE SODIUM 25 MCG TABLET PO SCH (07:30)
[2023-08-20] MEDS: LIPASE/PROTEASE/AMYLASE 1 EACH CAPSULE.DR PO SCH ×3 (08:00→18:00)
[2023-08-20] MEDS: diphenhydrAMINE HCL 50 MG/ML VIAL IV PRN (08:48)
[2023-08-20] MEDS: ASPIRIN EC 81 MG TABLET.DR PO SCH (09:00)
[2023-08-20] MEDS: HYDROCORTISONE 5 MG TABLET PO SCH ×2 (09:00→17:00)
[2023-08-20] MEDS: DULOXETINE HCL 30 MG CAPSULE.DR PO SCH ×2 (09:00→20:21)
[2023-08-20] MEDS: POLYETHYLENE GLYCOL 3350 17 GM POWD.PACK PO SCH (09:00)
[2023-08-20] MEDS: METOPROLOL TARTRATE 25 MG TABLET PO SCH ×2 (09:00→17:00)
[2023-08-20] MEDS: PANTOPRAZOLE 40 MG/PACK PACK PO SCH (09:00)
[2023-08-20] MEDS: CHOLECALCIFEROL 1,000 UNIT TABLET (VIT D3) PO SCH ×2 (09:00→18:00)
[2023-08-20 09:09] LABS: BASOPHILS # (AUTO) 0.1 K/uL (0.0-0.2); BASOPHILS % (AUTO) 0.6 % (0.0-2.0); EOSINOPHILS % (AUTO) 10.1 % (0.0-6.0); HEMATOCRIT 31 % (39-51); HEMOGLOBIN 9.1 g/dL (13.5-17.5); LYMPHOCYTES # (AUTO) 2.1 K/uL (0.8-4.8); LYMPHOCYTES % (AUTO) 21.1 % (20.0-44.0); MEAN CORPUSCULAR HEMOGLOBIN 27 PG (26.0-33.0); MEAN CORPUSCULAR HGB CONC 29 g/dl (31.0-36.0); MEAN CORPUSCULAR VOLUME 91 fL (80-96); MONOCYTES # (AUTO) 0.9 K/uL (0.1-1.30); MONOCYTES % (AUTO) 9.1 % (2.0-12.0); NEUTROPHILS # (AUTO) 5.9 K/uL (1.8-8.9); NEUTROPHILS % (AUTO) 59.1 % (43.0-81.0); PLATELET COUNT (AUTO) 546 K/uL (150-450); RED BLOOD CELL COUNT(AUTO) 3.42 MIL/uL (4.5-6.0); RED CELL DISTRIBUTION WIDTH 19.2 % (11.5-15.0)
[2023-08-20] MEDS: BUPRENORPHINE HCL 2 MG TAB.SUBL SL SCH ×3 (09:22→18:54)
[2023-08-20 09:30] LABS: CALCIUM, SERUM 10.3 mg/dL (8.5-10.1); CREATININE 0.8 mg/dL (0.6-1.3); POTASSIUM 3.2 mmol/L (3.5-5.1)
[2023-08-20 09:36] LABS: ALBUMIN 2.1 g/dL (3.4-5.0); BILIRUBIN,TOTAL 0.4 mg/dL (0.2-1.0)
[2023-08-20] MEDS: CHLORHEXIDINE GLUCONATE 15 ML UDC MM SCH ×2 (09:58→20:21)
[2023-08-20] MEDS: CLONIDINE HCL 0.2MG/24H PTWK 1 EA PATCH TD SCH (10:21)
[2023-08-20] MEDS: DAKINS QUARTER STRENGTH (0.125%) 480 ML BOTTLE TOP SCH (10:22)
[2023-08-20] MEDS ORDERED: OLANZAPINE 10 MG VIAL IM ONE (10:29)
[2023-08-20] MEDS: METOPROLOL TARTRATE 50 MG TABLET GT SCH ×2 (12:00→18:00)
[2023-08-20] MEDS: ENOXAPARIN SODIUM 40 MG/0.4 ML DISP.SYRIN SQ SCH (13:01)
[2023-08-20] MEDS: DAPTOMYCIN 500 MG in IV NS 0.9% 50 ML IV SCH (17:26)
[2023-08-20] MEDS: ASCORBIC ACID 500 MG TABLET PO SCH (18:00)
[2023-08-20] MEDS: CYANOCOBALAMIN 500 MCG TABLET PO SCH (18:00)
[2023-08-20] MEDS: MIRTAZAPINE 15 MG TABLET PO SCH (20:21)
[2023-08-20] MEDS: SENNOSIDES 8.6 MG TABLET PO SCH (20:22)
[2023-08-20] MEDS ORDERED: LABETALOL HCL IV 100MG VIAL ONE (22:10)
[2023-08-21] VITALS (39 sets, daily range): BP systolic 44–171; BP diastolic 33–120; TEMP 97.5–98.5; O2SAT 94–100
[2023-08-21] MEDS: BLOOD SUGAR DIAGNOSTIC 1 EACH STRIP IN SCH ×5 (00:06→23:38)
[2023-08-21] MEDS: INSULIN REGULAR, HUMAN 100 UNIT/ML 3 ML VIAL SQ PRN ×4 (00:08→17:07)
[2023-08-21] MEDS: GABAPENTIN 300 MG CAPSULE PO SCH ×3 (04:36→20:55)
[2023-08-21] MEDS: QUETIAPINE FUMARATE 100 MG TABLET PO SCH ×3 (04:37→20:55)
[2023-08-21] MEDS: TIZANIDINE HCL 4 MG TABLET PO SCH ×3 (04:37→20:55)
[2023-08-21] MEDS: PIPERACILLIN /TAZOBACTAM 3.375 G in IV D5W 100 ML IV SCH ×3 (04:38→21:00)
[2023-08-21] MEDS: METOPROLOL TARTRATE 50 MG TABLET GT SCH ×5 (06:00→23:47)
[2023-08-21] MEDS: LEVOTHYROXINE SODIUM 25 MCG TABLET PO SCH (07:30)
[2023-08-21] MEDS: LIPASE/PROTEASE/AMYLASE 1 EACH CAPSULE.DR PO SCH ×3 (08:00→17:09)
[2023-08-21] MEDS: ASPIRIN EC 81 MG TABLET.DR PO SCH (08:21)
[2023-08-21] MEDS: CHOLECALCIFEROL 1,000 UNIT TABLET (VIT D3) PO SCH ×2 (08:22→17:09)
[2023-08-21] MEDS: POLYETHYLENE GLYCOL 3350 17 GM POWD.PACK PO SCH (08:22)
[2023-08-21] MEDS: DULOXETINE HCL 30 MG CAPSULE.DR PO SCH ×2 (08:22→20:54)
[2023-08-21] MEDS: HYDROCORTISONE 5 MG TABLET PO SCH ×2 (08:22→16:06)
[2023-08-21] MEDS: METOPROLOL TARTRATE 25 MG TABLET PO SCH ×2 (08:22→16:07)
[2023-08-21] MEDS: PANTOPRAZOLE 40 MG/PACK PACK PO SCH (08:22)
[2023-08-21] MEDS: CHLORHEXIDINE GLUCONATE 15 ML UDC MM SCH ×2 (08:44→20:54)
[2023-08-21] MEDS: BUPRENORPHINE HCL 2 MG TAB.SUBL SL SCH ×3 (08:47→16:07)
[2023-08-21] MEDS: LABETALOL HCL IV 100MG VIAL IV PRN (08:48)
[2023-08-21] MEDS: DAKINS QUARTER STRENGTH (0.125%) 480 ML BOTTLE TOP SCH (08:51)
[2023-08-21] MEDS: ENOXAPARIN SODIUM 40 MG/0.4 ML DISP.SYRIN SQ SCH (11:46)
[2023-08-21 11:53] LABS: BASOPHILS % (AUTO) 0.7 % (0.0-2.0); EOSINOPHILS # (AUTO) 0.9 K/uL (0.0-0.7); EOSINOPHILS % (AUTO) 13.8 % (0.0-6.0); HEMATOCRIT 31 % (39-51); HEMOGLOBIN 9.1 g/dL (13.5-17.5); LYMPHOCYTES # (AUTO) 1.5 K/uL (0.8-4.8); LYMPHOCYTES % (AUTO) 22.5 % (20.0-44.0); MEAN CORPUSCULAR HEMOGLOBIN 26 PG (26.0-33.0); MEAN CORPUSCULAR HGB CONC 30 g/dl (31.0-36.0); MEAN CORPUSCULAR VOLUME 89 fL (80-96); MONOCYTES # (AUTO) 0.9 K/uL (0.1-1.30); MONOCYTES % (AUTO) 12.8 % (2.0-12.0); NEUTROPHILS # (AUTO) 3.5 K/uL (1.8-8.9); NEUTROPHILS % (AUTO) 50.2 % (43.0-81.0); PLATELET COUNT (AUTO) 501 K/uL (150-450); RED BLOOD CELL COUNT(AUTO) 3.47 MIL/uL (4.5-6.0); WHITE BLOOD COUNT (AUTO) 6.9 K/uL (4.3-11.0)
[2023-08-21 12:03] LABS: BILIRUBIN,TOTAL 0.4 mg/dL (0.2-1.0); CALCIUM, SERUM 9.4 mg/dL (8.5-10.1); CREATININE 0.8 mg/dL (0.6-1.3); TOTAL PROTEIN, SERUM 7.3 g/dL (6.4-8.2)
[2023-08-21 12:35] LABS: INR 1.05 (0.91-1.10); PROTHROMBIN TIME 11.1 SECS (9.2-11.1)
[2023-08-21] MEDS: DIGOXIN INJ 0.5 MG/2 ML AMPUL IV SCH ×2 (12:45→17:09)
[2023-08-21] MEDS: NITROGLYCERIN 30 GM TUBE TP SCH ×2 (12:45→20:55)
[2023-08-21] MEDS: DAPTOMYCIN 500 MG in IV NS 0.9% 50 ML IV SCH (16:47)
[2023-08-21] MEDS: CYANOCOBALAMIN 500 MCG TABLET PO SCH (17:09)
[2023-08-21] MEDS: ASCORBIC ACID 500 MG TABLET PO SCH (17:09)
[2023-08-21] MEDS: KETOROLAC TROMETHAMINE INJ 30 MG/ML VIAL IV PRN (17:46)
[2023-08-21] MEDS ORDERED: LORAZEPAM INJ 2 MG/ML VIAL IV ONE (18:00)
[2023-08-21] MEDS ORDERED: AMIODARONE 150 MG in IV D5W 100 ML IV ONE (18:00)
[2023-08-21] MEDS ORDERED: ADENOSINE 6 MG/2 ML VIAL IVP ONE (18:30)
[2023-08-21 18:41] LABS: ABG BASE EXCESS 9.2 mmol/L; ABG OXYGEN SATURATION 93.1 % (92.0-98.5); ABG PCO2 54.2 mmHg (35.0-45.0); ABG PH 7.427 (7.350-7.450); ABG PO2 66.7 mmHg (75.0-100.0); ABG TOTAL HEMOGLOBIN 9.8 G/dL (13.5-18.0); AaDO2 156.2 mmHg; COHb 0.1 % (0.5-1.5); MetHb 0.2 % (0.0-1.5); O2Hb 92.8 % (94.0-97.0); SITE, ABG Right Brachial; VENT MODE, BG C/A 40
[2023-08-21] MEDS: AMIODARONE 450 MG in IV D5W 241 ML IV PRN (19:18)
[2023-08-21] MEDS ORDERED: PHENYLEPHRINE 50 MG in IV NS 0.9% 245 ML IV PRN (20:00)
[2023-08-21] MEDS: MIRTAZAPINE 15 MG TABLET PO SCH (21:25)
[2023-08-21] MEDS: SENNOSIDES 8.6 MG TABLET PO SCH (21:25)
[2023-08-22] VITALS (25 sets, daily range): BP systolic 113–174; BP diastolic 67–120; TEMP 97.3–98; O2SAT 99–100
[2023-08-22] MEDS: DIGOXIN INJ 0.5 MG/2 ML AMPUL IV SCH (00:08)
[2023-08-22] MEDS: AMIODARONE 450 MG in IV D5W 241 ML IV PRN ×2 (03:07→17:17)
[2023-08-22 04:49] LABS: BASOPHILS # (AUTO) 0.1 K/uL (0.0-0.2); BASOPHILS % (AUTO) 0.8 % (0.0-2.0); EOSINOPHILS # (AUTO) 1.3 K/uL (0.0-0.7); EOSINOPHILS % (AUTO) 13.5 % (0.0-6.0); HEMATOCRIT 34 % (39-51); HEMOGLOBIN 10.2 g/dL (13.5-17.5); LYMPHOCYTES # (AUTO) 1.9 K/uL (0.8-4.8); LYMPHOCYTES % (AUTO) 20.3 % (20.0-44.0); MEAN CORPUSCULAR HEMOGLOBIN 27 PG (26.0-33.0); MEAN CORPUSCULAR HGB CONC 30 g/dl (31.0-36.0); MEAN CORPUSCULAR VOLUME 88 fL (80-96); MONOCYTES # (AUTO) 1.1 K/uL (0.1-1.30); MONOCYTES % (AUTO) 11.7 % (2.0-12.0); NEUTROPHILS % (AUTO) 53.7 % (43.0-81.0); PLATELET COUNT (AUTO) 507 K/uL (150-450); RED BLOOD CELL COUNT(AUTO) 3.86 MIL/uL (4.5-6.0); RED CELL DISTRIBUTION WIDTH 19.4 % (11.5-15.0); WHITE BLOOD COUNT (AUTO) 9.4 K/uL (4.3-11.0)
[2023-08-22] MEDS: GABAPENTIN 300 MG CAPSULE PO SCH ×3 (05:00→20:46)
[2023-08-22] MEDS: QUETIAPINE FUMARATE 100 MG TABLET PO SCH ×3 (05:00→20:46)
[2023-08-22] MEDS: PIPERACILLIN /TAZOBACTAM 3.375 G in IV D5W 100 ML IV SCH ×3 (05:00→21:00)
[2023-08-22] MEDS: TIZANIDINE HCL 4 MG TABLET PO SCH ×3 (05:00→20:46)
[2023-08-22 05:12] LABS: ALBUMIN 1.9 g/dL (3.4-5.0); BILIRUBIN,TOTAL 0.2 mg/dL (0.2-1.0); CALCIUM, SERUM 9.5 mg/dL (8.5-10.1); CREATININE 0.8 mg/dL (0.6-1.3); POTASSIUM 3.5 mmol/L (3.5-5.1); TOTAL PROTEIN, SERUM 7.6 g/dL (6.4-8.2)
[2023-08-22] MEDS: METOPROLOL TARTRATE 50 MG TABLET GT SCH ×3 (06:00→17:05)
[2023-08-22] MEDS: BLOOD SUGAR DIAGNOSTIC 1 EACH STRIP IN SCH ×3 (06:25→17:28)
[2023-08-22] MEDS: LEVOTHYROXINE SODIUM 25 MCG TABLET PO SCH (07:30)
[2023-08-22] MEDS: LIPASE/PROTEASE/AMYLASE 1 EACH CAPSULE.DR PO SCH ×3 (07:59→17:05)
[2023-08-22] MEDS: HYDROCORTISONE 5 MG TABLET PO SCH ×2 (08:00→17:00)
[2023-08-22] MEDS: DULOXETINE HCL 30 MG CAPSULE.DR PO SCH ×2 (08:00→20:46)
[2023-08-22] MEDS: CHOLECALCIFEROL 1,000 UNIT TABLET (VIT D3) PO SCH ×2 (08:00→17:05)
[2023-08-22] MEDS: METOPROLOL TARTRATE 25 MG TABLET PO SCH (08:00)
[2023-08-22] MEDS: POLYETHYLENE GLYCOL 3350 17 GM POWD.PACK PO SCH (08:00)
[2023-08-22] MEDS: ASPIRIN EC 81 MG TABLET.DR PO SCH (08:00)
[2023-08-22] MEDS: PANTOPRAZOLE 40 MG/PACK PACK PO SCH (08:00)
[2023-08-22] MEDS: BUPRENORPHINE HCL 2 MG TAB.SUBL SL SCH ×3 (08:07→17:00)
[2023-08-22] MEDS: DAKINS QUARTER STRENGTH (0.125%) 480 ML BOTTLE TOP SCH (09:16)
[2023-08-22] MEDS: CHLORHEXIDINE GLUCONATE 15 ML UDC MM SCH ×2 (09:20→20:46)
[2023-08-22] MEDS ORDERED: ETOMIDATE 2 MG/ML VIAL IV ONE (09:45)
[2023-08-22] MEDS: KETOROLAC TROMETHAMINE INJ 30 MG/ML VIAL IV PRN (10:08)
[2023-08-22] MEDS: ENOXAPARIN SODIUM 40 MG/0.4 ML DISP.SYRIN SQ SCH (12:00)
[2023-08-22] MEDS: DAPTOMYCIN 500 MG in IV NS 0.9% 50 ML IV SCH (12:35)
[2023-08-22] MEDS ORDERED: FENTANYL TD PATCH (25 MCG/HR) 25 MCG/HR PATCH.TD72 TD PRN (14:30)
[2023-08-22] MEDS ORDERED: NALOXONE HCL 0.4 MG/ML AMPUL IV PRN (14:30)
[2023-08-22] MEDS: LABETALOL HCL IV 100MG VIAL IV PRN (17:03)
[2023-08-22] MEDS: CYANOCOBALAMIN 500 MCG TABLET PO SCH (17:05)
[2023-08-22] MEDS: ASCORBIC ACID 500 MG TABLET PO SCH (17:05)
[2023-08-22] MEDS: INSULIN REGULAR, HUMAN 100 UNIT/ML 3 ML VIAL SQ PRN (17:32)
[2023-08-22] MEDS: KETOROLAC TROMETHAMINE INJ 30 MG/ML VIAL IV SCH (20:46)
[2023-08-22] MEDS: IV NS 0.9% 1,000 ML IV PRN (21:00)
[2023-08-22] MEDS: NITROGLYCERIN 30 GM TUBE TP SCH (21:13)
[2023-08-22] MEDS: SENNOSIDES 8.6 MG TABLET PO SCH (21:13)
[2023-08-22] MEDS: MIRTAZAPINE 15 MG TABLET PO SCH (21:13)
[2023-08-23] VITALS (24 sets, daily range): BP systolic 130–189; BP diastolic 71–97; TEMP 97.5–98.5; O2SAT 97–100
[2023-08-23] MEDS: BLOOD SUGAR DIAGNOSTIC 1 EACH STRIP IN SCH ×5 (00:17→23:51)
[2023-08-23] MEDS: KETOROLAC TROMETHAMINE INJ 30 MG/ML VIAL IV SCH ×3 (04:17→21:29)
[2023-08-23] MEDS: GABAPENTIN 300 MG CAPSULE PO SCH ×3 (05:00→21:00)
[2023-08-23] MEDS: TIZANIDINE HCL 4 MG TABLET PO SCH ×3 (05:00→21:00)
[2023-08-23] MEDS: PIPERACILLIN /TAZOBACTAM 3.375 G in IV D5W 100 ML IV SCH ×3 (05:00→21:31)
[2023-08-23] MEDS: QUETIAPINE FUMARATE 100 MG TABLET PO SCH ×3 (05:00→21:00)
[2023-08-23] MEDS: METOPROLOL TARTRATE 50 MG TABLET GT SCH ×5 (05:01→23:51)
[2023-08-23 05:23] LABS: BASOPHILS # (AUTO) 0.1 K/uL (0.0-0.2); BASOPHILS % (AUTO) 0.7 % (0.0-2.0); EOSINOPHILS # (AUTO) 0.8 K/uL (0.0-0.7); EOSINOPHILS % (AUTO) 4.9 % (0.0-6.0); HEMATOCRIT 26 % (39-51); HEMOGLOBIN 8.1 g/dL (13.5-17.5); LYMPHOCYTES # (AUTO) 1.8 K/uL (0.8-4.8); LYMPHOCYTES % (AUTO) 11.3 % (20.0-44.0); MEAN CORPUSCULAR HEMOGLOBIN 26 PG (26.0-33.0); MEAN CORPUSCULAR HGB CONC 31 g/dl (31.0-36.0); MEAN CORPUSCULAR VOLUME 85 fL (80-96); MONOCYTES # (AUTO) 0.9 K/uL (0.1-1.30); MONOCYTES % (AUTO) 5.6 % (2.0-12.0); NEUTROPHILS # (AUTO) 12.4 K/uL (1.8-8.9); NEUTROPHILS % (AUTO) 77.5 % (43.0-81.0); PLATELET COUNT (AUTO) 426 K/uL (150-450); RED BLOOD CELL COUNT(AUTO) 3.08 MIL/uL (4.5-6.0); RED CELL DISTRIBUTION WIDTH 18.8 % (11.5-15.0)
[2023-08-23 05:45] LABS: ALBUMIN 1.8 g/dL (3.4-5.0); BILIRUBIN,TOTAL 0.3 mg/dL (0.2-1.0); CALCIUM, SERUM 9.1 mg/dL (8.5-10.1); CREATININE 0.8 mg/dL (0.6-1.3); TOTAL PROTEIN, SERUM 6.7 g/dL (6.4-8.2)
[2023-08-23 05:53] LABS: POTASSIUM 2.5 mmol/L (3.5-5.1)
[2023-08-23] MEDS: POTASSIUM CL. PREMIX PERIPHER. 50 ML IV SCH ×8 (07:00→15:25)
[2023-08-23] MEDS: LEVOTHYROXINE SODIUM 25 MCG TABLET PO SCH (07:30)
[2023-08-23] MEDS: LIPASE/PROTEASE/AMYLASE 1 EACH CAPSULE.DR PO SCH ×3 (08:00→17:02)
[2023-08-23] MEDS: POLYETHYLENE GLYCOL 3350 17 GM POWD.PACK PO SCH (08:01)
[2023-08-23] MEDS: PANTOPRAZOLE 40 MG/PACK PACK PO SCH (08:01)
[2023-08-23] MEDS: DULOXETINE HCL 30 MG CAPSULE.DR PO SCH ×2 (08:01→21:00)
[2023-08-23] MEDS: CHOLECALCIFEROL 1,000 UNIT TABLET (VIT D3) PO SCH ×2 (08:01→17:02)
[2023-08-23] MEDS: ASPIRIN EC 81 MG TABLET.DR PO SCH (08:01)
[2023-08-23] MEDS: HYDROCORTISONE 5 MG TABLET PO SCH ×2 (08:01→17:00)
[2023-08-23] MEDS: BUPRENORPHINE HCL 2 MG TAB.SUBL SL SCH ×3 (08:02→17:00)
[2023-08-23] MEDS ORDERED: POTASSIUM CL. PREMIX PERIPHER. 50 ML IV SCH (09:00)
[2023-08-23] MEDS: AMIODARONE 450 MG in IV D5W 241 ML IV PRN ×2 (09:56→23:33)
[2023-08-23] MEDS: CHLORHEXIDINE GLUCONATE 15 ML UDC MM SCH ×2 (10:52→21:31)
[2023-08-23] MEDS: NITROGLYCERIN 30 GM TUBE TP SCH ×2 (10:52→21:32)
[2023-08-23] MEDS: DAKINS QUARTER STRENGTH (0.125%) 480 ML BOTTLE TOP SCH (10:53)
[2023-08-23 11:36] LABS: ABG BASE EXCESS 9.3 mmol/L; ABG OXYGEN SATURATION 98.1 % (92.0-98.5); ABG PCO2 64.5 mmHg (35.0-45.0); ABG PH 7.366 (7.350-7.450); ABG PO2 119.1 mmHg (75.0-100.0); AaDO2 91.9 mmHg; COHb 0.1 % (0.5-1.5); MetHb 0.5 % (0.0-1.5); O2Hb 97.5 % (94.0-97.0); SITE, ABG Right Radial
[2023-08-23] MEDS: DAPTOMYCIN 500 MG in IV NS 0.9% 50 ML IV SCH (13:06)
[2023-08-23] MEDS: INSULIN REGULAR, HUMAN 100 UNIT/ML 3 ML VIAL SQ PRN (13:09)
[2023-08-23] MEDS: ENOXAPARIN SODIUM 40 MG/0.4 ML DISP.SYRIN SQ SCH (13:10)
[2023-08-23] MEDS: ASCORBIC ACID 500 MG TABLET PO SCH (17:02)
[2023-08-23] MEDS: CYANOCOBALAMIN 500 MCG TABLET PO SCH (17:02)
[2023-08-23] MEDS: IV NS 0.9% 1,000 ML IV PRN (17:26)
[2023-08-23] MEDS: LORAZEPAM INJ 2 MG/ML VIAL IV PRN ×2 (17:26→23:05)
[2023-08-23] MEDS: LABETALOL HCL IV 100MG VIAL IV PRN ×2 (19:58→23:59)
[2023-08-23] MEDS: MIRTAZAPINE 15 MG TABLET PO SCH (21:33)
[2023-08-23] MEDS: SENNOSIDES 8.6 MG TABLET PO SCH (21:33)
[2023-08-24] VITALS (26 sets, daily range): BP systolic 109–180; BP diastolic 61–101; TEMP 98–98.3; O2SAT 95–100
[2023-08-24] MEDS: KETOROLAC TROMETHAMINE INJ 30 MG/ML VIAL IV SCH ×3 (03:52→20:45)
[2023-08-24] MEDS: PIPERACILLIN /TAZOBACTAM 3.375 G in IV D5W 100 ML IV SCH ×3 (03:56→20:45)
[2023-08-24] MEDS: LABETALOL HCL IV 100MG VIAL IV PRN ×2 (03:57→19:28)
[2023-08-24] MEDS: GABAPENTIN 300 MG CAPSULE PO SCH ×3 (05:00→21:00)
[2023-08-24] MEDS: QUETIAPINE FUMARATE 100 MG TABLET PO SCH ×3 (05:00→21:00)
[2023-08-24] MEDS: TIZANIDINE HCL 4 MG TABLET PO SCH ×3 (05:00→21:00)
[2023-08-24] MEDS: METOPROLOL TARTRATE 50 MG TABLET GT SCH ×3 (05:01→17:18)
[2023-08-24] MEDS: BLOOD SUGAR DIAGNOSTIC 1 EACH STRIP IN SCH ×3 (05:20→18:23)
[2023-08-24] MEDS: INSULIN REGULAR, HUMAN 100 UNIT/ML 3 ML VIAL SQ PRN ×2 (05:26→18:29)
[2023-08-24 05:43] LABS: BASOPHILS # (AUTO) 0.1 K/uL (0.0-0.2); BASOPHILS % (AUTO) 0.6 % (0.0-2.0); EOSINOPHILS # (AUTO) 1.3 K/uL (0.0-0.7); HEMATOCRIT 24 % (39-51); LYMPHOCYTES # (AUTO) 0.9 K/uL (0.8-4.8); LYMPHOCYTES % (AUTO) 7.2 % (20.0-44.0); MEAN CORPUSCULAR HEMOGLOBIN 26 PG (26.0-33.0); MEAN CORPUSCULAR HGB CONC 30 g/dl (31.0-36.0); MEAN CORPUSCULAR VOLUME 86 fL (80-96); MONOCYTES # (AUTO) 0.9 K/uL (0.1-1.30); MONOCYTES % (AUTO) 7.4 % (2.0-12.0); NEUTROPHILS # (AUTO) 8.8 K/uL (1.8-8.9); NEUTROPHILS % (AUTO) 73.8 % (43.0-81.0); PLATELET COUNT (AUTO) 409 K/uL (150-450); RED BLOOD CELL COUNT(AUTO) 2.74 MIL/uL (4.5-6.0); RED CELL DISTRIBUTION WIDTH 19.2 % (11.5-15.0)
[2023-08-24 06:01] LABS: ALBUMIN 1.6 g/dL (3.4-5.0); BILIRUBIN,TOTAL 0.3 mg/dL (0.2-1.0); CALCIUM, SERUM 8.8 mg/dL (8.5-10.1); CREATININE 0.7 mg/dL (0.6-1.3); POTASSIUM 3.8 mmol/L (3.5-5.1); TOTAL PROTEIN, SERUM 6.1 g/dL (6.4-8.2)
[2023-08-24] MEDS: IV NS 0.9% 1,000 ML IV PRN ×2 (06:19→17:15)
[2023-08-24] MEDS: LEVOTHYROXINE SODIUM 25 MCG TABLET PO SCH (07:45)
[2023-08-24] MEDS: LIPASE/PROTEASE/AMYLASE 1 EACH CAPSULE.DR PO SCH ×3 (07:45→17:16)
[2023-08-24] MEDS: ASPIRIN EC 81 MG TABLET.DR PO SCH (08:08)
[2023-08-24] MEDS: HYDROCORTISONE 5 MG TABLET PO SCH ×2 (08:08→16:45)
[2023-08-24] MEDS: DULOXETINE HCL 30 MG CAPSULE.DR PO SCH ×2 (08:09→21:00)
[2023-08-24] MEDS: PANTOPRAZOLE 40 MG/PACK PACK PO SCH (08:09)
[2023-08-24] MEDS: POLYETHYLENE GLYCOL 3350 17 GM POWD.PACK PO SCH (08:09)
[2023-08-24] MEDS: CHOLECALCIFEROL 1,000 UNIT TABLET (VIT D3) PO SCH ×2 (08:10→17:17)
[2023-08-24] MEDS: CHLORHEXIDINE GLUCONATE 15 ML UDC MM SCH ×2 (08:20→20:45)
[2023-08-24] MEDS: BUPRENORPHINE HCL 2 MG TAB.SUBL SL SCH ×3 (08:20→16:54)
[2023-08-24] MEDS: DAKINS QUARTER STRENGTH (0.125%) 480 ML BOTTLE TOP SCH (08:21)
[2023-08-24] MEDS: NITROGLYCERIN 30 GM TUBE TP SCH ×2 (08:23→21:15)
[2023-08-24 09:27] LABS: ABG BASE EXCESS 4.2 mmol/L; ABG OXYGEN SATURATION 94.5 % (92.0-98.5); ABG PCO2 54.6 mmHg (35.0-45.0); ABG PH 7.362 (7.350-7.450); ABG PO2 78.9 mmHg (75.0-100.0); ABG TOTAL HEMOGLOBIN 8.3 G/dL (13.5-18.0); AaDO2 70.8 mmHg; COHb 0.2 % (0.5-1.5); MetHb 0.3 % (0.0-1.5); SITE, ABG Right Radial
[2023-08-24] MEDS: LINEZOLID RTU BAG 600 MG in PREMIX 1 EA IV SCH ×2 (10:39→21:15)
[2023-08-24] MEDS: ENOXAPARIN SODIUM 40 MG/0.4 ML DISP.SYRIN SQ SCH (12:00)
[2023-08-24 12:23] LABS: HEMOGLOBIN 7.5 g/dL (13.5-17.5)
[2023-08-24 14:14] LABS: HIV-1 p24 ANTIGEN NON REACTIVE (NONREACTIVE); HIV-1/2 ANTIBODY NON REACTIVE (NONREACTIVE)
[2023-08-24] MEDS: AMIODARONE 450 MG in IV D5W 241 ML IV PRN (16:13)
[2023-08-24] MEDS: LORAZEPAM INJ 2 MG/ML VIAL IV PRN ×2 (16:14→22:58)
[2023-08-24] MEDS: CYANOCOBALAMIN 500 MCG TABLET PO SCH (17:16)
[2023-08-24] MEDS: ASCORBIC ACID 500 MG TABLET PO SCH (17:17)
[2023-08-24] MEDS: MIRTAZAPINE 15 MG TABLET PO SCH (21:09)
[2023-08-24] MEDS: SENNOSIDES 8.6 MG TABLET PO SCH (21:09)
[2023-08-25] VITALS (35 sets, daily range): BP systolic 82–182; BP diastolic 13–101; TEMP 97–98.4; O2SAT 78–100
[2023-08-25] MEDS: BLOOD SUGAR DIAGNOSTIC 1 EACH STRIP IN SCH ×4 (00:39→18:10)
[2023-08-25] MEDS: LABETALOL HCL IV 100MG VIAL IV PRN (03:37)
[2023-08-25] MEDS: AMIODARONE 450 MG in IV D5W 241 ML IV PRN ×2 (04:34→18:26)
[2023-08-25 04:47] LABS: BASOPHILS % (AUTO) 0.4 % (0.0-2.0); EOSINOPHILS # (AUTO) 0.9 K/uL (0.0-0.7); EOSINOPHILS % (AUTO) 9.2 % (0.0-6.0); HEMATOCRIT 25 % (39-51); HEMOGLOBIN 7.4 g/dL (13.5-17.5); LYMPHOCYTES # (AUTO) 1.4 K/uL (0.8-4.8); LYMPHOCYTES % (AUTO) 13.8 % (20.0-44.0); MEAN CORPUSCULAR HEMOGLOBIN 26 PG (26.0-33.0); MEAN CORPUSCULAR HGB CONC 30 g/dl (31.0-36.0); MEAN CORPUSCULAR VOLUME 86 fL (80-96); MONOCYTES # (AUTO) 0.9 K/uL (0.1-1.30); NEUTROPHILS # (AUTO) 6.7 K/uL (1.8-8.9); NEUTROPHILS % (AUTO) 67.6 % (43.0-81.0); PLATELET COUNT (AUTO) 395 K/uL (150-450); RED BLOOD CELL COUNT(AUTO) 2.86 MIL/uL (4.5-6.0); RED CELL DISTRIBUTION WIDTH 19.2 % (11.5-15.0); WHITE BLOOD COUNT (AUTO) 9.9 K/uL (4.3-11.0)
[2023-08-25] MEDS: KETOROLAC TROMETHAMINE INJ 30 MG/ML VIAL IV SCH ×3 (04:48→20:41)
[2023-08-25] MEDS: PIPERACILLIN /TAZOBACTAM 3.375 G in IV D5W 100 ML IV SCH ×3 (04:48→20:42)
[2023-08-25] MEDS: QUETIAPINE FUMARATE 100 MG TABLET PO SCH ×3 (05:00→20:22)
[2023-08-25] MEDS: TIZANIDINE HCL 4 MG TABLET PO SCH ×3 (05:00→20:22)
[2023-08-25] MEDS: GABAPENTIN 300 MG CAPSULE PO SCH ×3 (05:00→20:22)
[2023-08-25] MEDS: METOPROLOL TARTRATE 50 MG TABLET GT SCH ×5 (06:00→23:07)
[2023-08-25 06:26] LABS: ALBUMIN 1.5 g/dL (3.4-5.0); BILIRUBIN,TOTAL 0.3 mg/dL (0.2-1.0); CALCIUM, SERUM 8.6 mg/dL (8.5-10.1); CREATININE 0.6 mg/dL (0.6-1.3); TOTAL PROTEIN, SERUM 5.9 g/dL (6.4-8.2)
[2023-08-25] MEDS: LIPASE/PROTEASE/AMYLASE 1 EACH CAPSULE.DR PO SCH ×3 (07:08→18:00)
[2023-08-25] MEDS: LEVOTHYROXINE SODIUM 25 MCG TABLET PO SCH (07:08)
[2023-08-25] MEDS: LORAZEPAM INJ 2 MG/ML VIAL IV PRN (08:01)
[2023-08-25] MEDS: HYDROCORTISONE 5 MG TABLET PO SCH ×2 (08:23→16:37)
[2023-08-25] MEDS: POLYETHYLENE GLYCOL 3350 17 GM POWD.PACK PO SCH (08:23)
[2023-08-25] MEDS: DULOXETINE HCL 30 MG CAPSULE.DR PO SCH ×2 (08:23→20:22)
[2023-08-25] MEDS: ASPIRIN EC 81 MG TABLET.DR PO SCH (08:23)
[2023-08-25] MEDS: CHOLECALCIFEROL 1,000 UNIT TABLET (VIT D3) PO SCH ×2 (08:24→18:00)
[2023-08-25] MEDS: PANTOPRAZOLE 40 MG/PACK PACK PO SCH (08:24)
[2023-08-25] MEDS: BUPRENORPHINE HCL 2 MG TAB.SUBL SL SCH ×3 (08:27→16:46)
[2023-08-25] MEDS: CHLORHEXIDINE GLUCONATE 15 ML UDC MM SCH ×2 (08:27→20:42)
[2023-08-25] MEDS: LINEZOLID RTU BAG 600 MG in PREMIX 1 EA IV SCH ×2 (08:28→20:42)
[2023-08-25] MEDS: NITROGLYCERIN 30 GM TUBE TP SCH ×2 (08:28→20:43)
[2023-08-25] MEDS: DAKINS QUARTER STRENGTH (0.125%) 480 ML BOTTLE TOP SCH (08:29)
[2023-08-25] MEDS: IV NS 0.9% 1,000 ML IV PRN (08:38)
[2023-08-25] MEDS: POTASSIUM CL. PREMIX PERIPHER. 50 ML IV SCH ×6 (09:29→14:58)
[2023-08-25 10:28] LABS: ABG OXYGEN SATURATION 87.3 % (92.0-98.5); ABG PCO2 54.3 mmHg (35.0-45.0); ABG PH 7.374 (7.350-7.450); ABG PO2 54.7 mmHg (75.0-100.0); ABG TOTAL HEMOGLOBIN 8.6 G/dL (13.5-18.0); AaDO2 168.1 mmHg; COHb 0.7 % (0.5-1.5); MetHb 0.1 % (0.0-1.5); O2Hb 86.6 % (94.0-97.0); SITE, ABG Right Radial; VENT MODE, BG C/A 40% 10LPM
[2023-08-25] MEDS: ENOXAPARIN SODIUM 40 MG/0.4 ML DISP.SYRIN SQ SCH (11:16)
[2023-08-25] MEDS: INSULIN REGULAR, HUMAN 100 UNIT/ML 3 ML VIAL SQ PRN (12:38)
[2023-08-25] MEDS ORDERED: FUROSEMIDE 20 MG/2 ML VIAL IV PRN (17:30)
[2023-08-25] MEDS: ASCORBIC ACID 500 MG TABLET PO SCH (18:00)
[2023-08-25] MEDS: CYANOCOBALAMIN 500 MCG TABLET PO SCH (18:00)
[2023-08-25] MEDS: SENNOSIDES 8.6 MG TABLET PO SCH (21:14)
[2023-08-25] MEDS: MIRTAZAPINE 15 MG TABLET PO SCH (21:14)
[2023-08-25 22:28] LABS: CALCIUM, SERUM 8.6 mg/dL (8.5-10.1); CREATININE 0.6 mg/dL (0.6-1.3); POTASSIUM 3.8 mmol/L (3.5-5.1)
[2023-08-25 22:38] LABS: BASOPHILS % (AUTO) 0.3 % (0.0-2.0); EOSINOPHILS # (AUTO) 0.8 K/uL (0.0-0.7); HEMATOCRIT 27 % (39-51); LYMPHOCYTES # (AUTO) 2.4 K/uL (0.8-4.8); LYMPHOCYTES % (AUTO) 27.1 % (20.0-44.0); MEAN CORPUSCULAR HEMOGLOBIN 26 PG (26.0-33.0); MEAN CORPUSCULAR HGB CONC 29 g/dl (31.0-36.0); MEAN CORPUSCULAR VOLUME 87 fL (80-96); MONOCYTES # (AUTO) 1.2 K/uL (0.1-1.30); MONOCYTES % (AUTO) 13.1 % (2.0-12.0); NEUTROPHILS # (AUTO) 4.5 K/uL (1.8-8.9); NEUTROPHILS % (AUTO) 50.5 % (43.0-81.0); PLATELET COUNT (AUTO) 376 K/uL (150-450); RED BLOOD CELL COUNT(AUTO) 3.16 MIL/uL (4.5-6.0); RED CELL DISTRIBUTION WIDTH 19.1 % (11.5-15.0); WHITE BLOOD COUNT (AUTO) 8.9 K/uL (4.3-11.0)
[2023-08-26] VITALS (12 sets, daily range): BP systolic 114–183; BP diastolic 61–92; TEMP 96.1–98.2; O2SAT 75–100
[2023-08-26] MEDS: INSULIN REGULAR, HUMAN 100 UNIT/ML 3 ML VIAL SQ PRN (00:17)
[2023-08-26] MEDS: BLOOD SUGAR DIAGNOSTIC 1 EACH STRIP IN SCH ×4 (00:20→18:10)
[2023-08-26] MEDS: TIZANIDINE HCL 4 MG TABLET PO SCH ×3 (05:00→21:00)
[2023-08-26] MEDS: GABAPENTIN 300 MG CAPSULE PO SCH ×3 (05:00→21:00)
[2023-08-26] MEDS: QUETIAPINE FUMARATE 100 MG TABLET PO SCH ×3 (05:00→21:00)
[2023-08-26] MEDS: PIPERACILLIN /TAZOBACTAM 3.375 G in IV D5W 100 ML IV SCH ×3 (05:05→20:55)
[2023-08-26] MEDS: KETOROLAC TROMETHAMINE INJ 30 MG/ML VIAL IV SCH ×3 (05:14→20:30)
[2023-08-26] MEDS: METOPROLOL TARTRATE 50 MG TABLET GT SCH ×3 (06:00→18:00)
[2023-08-26] MEDS: LEVOTHYROXINE SODIUM 25 MCG TABLET PO SCH (07:30)
[2023-08-26] MEDS: LIPASE/PROTEASE/AMYLASE 1 EACH CAPSULE.DR PO SCH ×3 (08:00→18:00)
[2023-08-26 08:08] LABS: BASOPHILS # (AUTO) 0.1 K/uL (0.0-0.2); BASOPHILS % (AUTO) 0.7 % (0.0-2.0); EOSINOPHILS # (AUTO) 0.8 K/uL (0.0-0.7); EOSINOPHILS % (AUTO) 7.9 % (0.0-6.0); HEMATOCRIT 32 % (39-51); HEMOGLOBIN 9.7 g/dL (13.5-17.5); LYMPHOCYTES # (AUTO) 2.7 K/uL (0.8-4.8); LYMPHOCYTES % (AUTO) 28.2 % (20.0-44.0); MEAN CORPUSCULAR HEMOGLOBIN 27 PG (26.0-33.0); MEAN CORPUSCULAR HGB CONC 31 g/dl (31.0-36.0); MEAN CORPUSCULAR VOLUME 88 fL (80-96); MONOCYTES # (AUTO) 1.1 K/uL (0.1-1.30); NEUTROPHILS % (AUTO) 52.2 % (43.0-81.0); PLATELET COUNT (AUTO) 349 K/uL (150-450); RED BLOOD CELL COUNT(AUTO) 3.61 MIL/uL (4.5-6.0); RED CELL DISTRIBUTION WIDTH 18.3 % (11.5-15.0); WHITE BLOOD COUNT (AUTO) 9.6 K/uL (4.3-11.0)
[2023-08-26] MEDS ORDERED: BUPIVACAINE MPF 0.5% W/EPI INJ 30 ML VIAL ONE (08:12)
[2023-08-26] MEDS ORDERED: LIDOCAINE 1% INJ 50 ML MDV IJ ONE (08:12)
[2023-08-26] MEDS: ASPIRIN EC 81 MG TABLET.DR PO SCH (08:22)
[2023-08-26] MEDS: DAKINS QUARTER STRENGTH (0.125%) 480 ML BOTTLE TOP SCH (08:22)
[2023-08-26] MEDS: POLYETHYLENE GLYCOL 3350 17 GM POWD.PACK PO SCH (08:23)
[2023-08-26] MEDS: HYDROCORTISONE 5 MG TABLET PO SCH ×2 (08:23→16:32)
[2023-08-26] MEDS: PANTOPRAZOLE 40 MG/PACK PACK PO SCH (08:23)
[2023-08-26] MEDS: BUPRENORPHINE HCL 2 MG TAB.SUBL SL SCH ×3 (08:23→16:32)
[2023-08-26] MEDS: CHOLECALCIFEROL 1,000 UNIT TABLET (VIT D3) PO SCH ×2 (08:23→18:00)
[2023-08-26] MEDS: DULOXETINE HCL 30 MG CAPSULE.DR PO SCH ×2 (08:23→21:00)
[2023-08-26] MEDS: CHLORHEXIDINE GLUCONATE 15 ML UDC MM SCH ×2 (08:42→21:00)
[2023-08-26] MEDS: NITROGLYCERIN 30 GM TUBE TP SCH (09:24)
[2023-08-26 10:23] LABS: CALCIUM, SERUM 8.6 mg/dL (8.5-10.1); CREATININE 0.5 mg/dL (0.6-1.3); POTASSIUM 3.7 mmol/L (3.5-5.1)
[2023-08-26 10:34] LABS: ALBUMIN 1.5 g/dL (3.4-5.0); BILIRUBIN,TOTAL 0.5 mg/dL (0.2-1.0); TOTAL PROTEIN, SERUM 5.9 g/dL (6.4-8.2)
[2023-08-26] MEDS: ENOXAPARIN SODIUM 40 MG/0.4 ML DISP.SYRIN SQ SCH (11:59)
[2023-08-26] MEDS ORDERED: DAPTOMYCIN 500 MG in IV NS 0.9% 50 ML IV SCH (14:00)
[2023-08-26] MEDS: DAPTOMYCIN 500 MG in IV NS 0.9% 50 ML IV SCH (16:25)
[2023-08-26] MEDS ORDERED: ANESTHESIA TRAY IN PYXIS 1 EA TRAY MC ONE (17:29)
[2023-08-26] MEDS: CYANOCOBALAMIN 500 MCG TABLET PO SCH (18:00)
[2023-08-26] MEDS: ASCORBIC ACID 500 MG TABLET PO SCH (18:00)
[2023-08-26] MEDS ORDERED: LABETALOL HCL IV 100MG VIAL ONE (18:15)
[2023-08-26] MEDS ORDERED: PHYTONADIONE INJ 10 MG/1 ML AMPUL ONE (18:27)
[2023-08-26] MEDS ORDERED: ROCURONIUM BROMIDE 50 MG/5 ML ONE (18:31)
[2023-08-26] MEDS ORDERED: BACITRACIN OPHTH OINT 3.5 GM TUBE ONE (19:02)
[2023-08-26] MEDS ORDERED: FENTANYL PF 250MCG/5ML AMPUL ONE (19:08)
[2023-08-26] MEDS: hydrALAZINE HCL IV 20 MG VIAL IV PRN (19:58)
[2023-08-26] MEDS: LABETALOL HCL IV 100MG VIAL IV PRN (20:20)
[2023-08-26] MEDS ORDERED: IV LR 1000 ML 1,000 ML IV PRN (20:30)
[2023-08-26] MEDS ORDERED: FENTANYL PF 100MCG/2ML AMPUL IV PRN (20:30)
[2023-08-26] MEDS: MIRTAZAPINE 15 MG TABLET PO SCH (22:00)
[2023-08-26] MEDS: SENNOSIDES 8.6 MG TABLET PO SCH (22:00)
[2023-08-27] VITALS: BP 167/79; TEMP 96.1; O2SAT 100
[2023-08-27] MEDS: NITROGLYCERIN 30 GM TUBE TP SCH ×3 (00:13→21:54)
[2023-08-27] MEDS: BLOOD SUGAR DIAGNOSTIC 1 EACH STRIP IN SCH ×4 (00:17→18:09)
[2023-08-27] MEDS: INSULIN REGULAR, HUMAN 100 UNIT/ML 3 ML VIAL SQ PRN ×2 (00:29→05:31)
[2023-08-27 04:00] VITALS: BP 117/61; TEMP 97.7; O2SAT 100
[2023-08-27] MEDS: KETOROLAC TROMETHAMINE INJ 30 MG/ML VIAL IV SCH ×2 (04:30→12:46)
[2023-08-27] MEDS: PIPERACILLIN /TAZOBACTAM 3.375 G in IV D5W 100 ML IV SCH (04:51)
[2023-08-27] MEDS: QUETIAPINE FUMARATE 100 MG TABLET PO SCH ×3 (05:00→21:00)
[2023-08-27] MEDS: GABAPENTIN 300 MG CAPSULE PO SCH ×3 (05:00→21:00)
[2023-08-27] MEDS: TIZANIDINE HCL 4 MG TABLET PO SCH ×3 (05:00→21:00)
[2023-08-27] MEDS: IV LR 1000 ML 1,000 ML IV PRN ×2 (05:02→09:19)
[2023-08-27] MEDS: METOPROLOL TARTRATE 50 MG TABLET GT SCH ×4 (05:24→17:06)
[2023-08-27] MEDS: LEVOTHYROXINE SODIUM 25 MCG TABLET PO SCH (06:44)
[2023-08-27 08:00] VITALS: BP 134/66; TEMP 98.1; O2SAT 100
[2023-08-27] MEDS: LIPASE/PROTEASE/AMYLASE 1 EACH CAPSULE.DR PO SCH ×3 (08:00→17:06)
[2023-08-27] MEDS: DULOXETINE HCL 30 MG CAPSULE.DR PO SCH ×2 (08:23→21:00)
[2023-08-27] MEDS: PANTOPRAZOLE 40 MG/PACK PACK PO SCH (08:23)
[2023-08-27] MEDS: POLYETHYLENE GLYCOL 3350 17 GM POWD.PACK PO SCH (08:23)
[2023-08-27] MEDS: CHOLECALCIFEROL 1,000 UNIT TABLET (VIT D3) PO SCH ×2 (08:23→17:07)
[2023-08-27] MEDS: HYDROCORTISONE 5 MG TABLET PO SCH ×2 (08:23→17:00)
[2023-08-27] MEDS: BUPRENORPHINE HCL 2 MG TAB.SUBL SL SCH ×3 (08:23→17:06)
[2023-08-27] MEDS: ASPIRIN EC 81 MG TABLET.DR PO SCH (08:23)
[2023-08-27] MEDS: DAKINS QUARTER STRENGTH (0.125%) 480 ML BOTTLE TOP SCH (08:24)
[2023-08-27] MEDS: CHLORHEXIDINE GLUCONATE 15 ML UDC MM SCH ×2 (09:05→21:54)
[2023-08-27] MEDS: CLONIDINE HCL 0.2MG/24H PTWK 1 EA PATCH TD SCH (09:05)
[2023-08-27 11:22] LABS: CALCIUM, SERUM 8.5 mg/dL (8.5-10.1); CREATININE 0.5 mg/dL (0.6-1.3); POTASSIUM 3.4 mmol/L (3.5-5.1)
[2023-08-27 11:25] LABS: BASOPHILS % (AUTO) 0.3 % (0.0-2.0); EOSINOPHILS # (AUTO) 0.2 K/uL (0.0-0.7); EOSINOPHILS % (AUTO) 2.7 % (0.0-6.0); HEMATOCRIT 31 % (39-51); HEMOGLOBIN 9.4 g/dL (13.5-17.5); LYMPHOCYTES # (AUTO) 3.5 K/uL (0.8-4.8); LYMPHOCYTES % (AUTO) 39.7 % (20.0-44.0); MEAN CORPUSCULAR HEMOGLOBIN 27 PG (26.0-33.0); MEAN CORPUSCULAR HGB CONC 30 g/dl (31.0-36.0); MEAN CORPUSCULAR VOLUME 89 fL (80-96); MONOCYTES # (AUTO) 0.6 K/uL (0.1-1.30); MONOCYTES % (AUTO) 6.6 % (2.0-12.0); NEUTROPHILS # (AUTO) 4.5 K/uL (1.8-8.9); NEUTROPHILS % (AUTO) 50.7 % (43.0-81.0); PLATELET COUNT (AUTO) 311 K/uL (150-450); RED BLOOD CELL COUNT(AUTO) 3.52 MIL/uL (4.5-6.0); RED CELL DISTRIBUTION WIDTH 18.2 % (11.5-15.0); WHITE BLOOD COUNT (AUTO) 8.8 K/uL (4.3-11.0)
[2023-08-27 11:29] LABS: BILIRUBIN,TOTAL 0.3 mg/dL (0.2-1.0); TOTAL PROTEIN, SERUM 5.7 g/dL (6.4-8.2)
[2023-08-27 11:40] LABS: ALBUMIN 1.3 g/dL (3.4-5.0)
[2023-08-27 12:00] VITALS: BP 131/71; TEMP 98.3; O2SAT 100
[2023-08-27] MEDS: ENOXAPARIN SODIUM 40 MG/0.4 ML DISP.SYRIN SQ SCH (12:44)
[2023-08-27] MEDS: DAPTOMYCIN 500 MG in IV NS 0.9% 50 ML IV SCH (13:13)
[2023-08-27 16:00] VITALS: BP 131/76; TEMP 98; O2SAT 100
[2023-08-27] MEDS: ASCORBIC ACID 500 MG TABLET PO SCH (17:06)
[2023-08-27] MEDS: CYANOCOBALAMIN 500 MCG TABLET PO SCH (17:06)
[2023-08-27] MEDS ORDERED: TPN/PPN PER PHARMACY IV PRN (18:30)
[2023-08-27] MEDS: IV D5/0.45 NACL 1,000 ML IV PRN (18:40)
[2023-08-27 20:00] VITALS: BP 138/68; TEMP 98.6; O2SAT 100
[2023-08-27] MEDS: MIRTAZAPINE 15 MG TABLET PO SCH (21:55)
[2023-08-27] MEDS: SENNOSIDES 8.6 MG TABLET PO SCH (21:55)
[2023-08-28] VITALS: BP 130/66; TEMP 98.8; O2SAT 98
[2023-08-28] MEDS: BLOOD SUGAR DIAGNOSTIC 1 EACH STRIP IN SCH ×5 (00:10→23:56)
[2023-08-28 04:00] VITALS: BP 135/69; TEMP 98.5; O2SAT 99
[2023-08-28] MEDS: TIZANIDINE HCL 4 MG TABLET PO SCH ×3 (04:04→21:00)
[2023-08-28] MEDS: GABAPENTIN 300 MG CAPSULE PO SCH ×3 (04:04→21:00)
[2023-08-28] MEDS: QUETIAPINE FUMARATE 100 MG TABLET PO SCH ×3 (04:04→21:00)
[2023-08-28] MEDS: METOPROLOL TARTRATE 50 MG TABLET GT SCH ×4 (06:00→17:05)
[2023-08-28] MEDS: IV D5/0.45 NACL 1,000 ML IV PRN ×2 (06:47→19:01)
[2023-08-28 07:06] LABS: BASOPHILS # (AUTO) 0.1 K/uL (0.0-0.2); BASOPHILS % (AUTO) 1.2 % (0.0-2.0); EOSINOPHILS # (AUTO) 0.6 K/uL (0.0-0.7); EOSINOPHILS % (AUTO) 8.3 % (0.0-6.0); HEMATOCRIT 28 % (39-51); HEMOGLOBIN 8.5 g/dL (13.5-17.5); LYMPHOCYTES # (AUTO) 1.9 K/uL (0.8-4.8); LYMPHOCYTES % (AUTO) 25.2 % (20.0-44.0); MEAN CORPUSCULAR HEMOGLOBIN 27 PG (26.0-33.0); MEAN CORPUSCULAR HGB CONC 31 g/dl (31.0-36.0); MEAN CORPUSCULAR VOLUME 86 fL (80-96); MONOCYTES # (AUTO) 0.9 K/uL (0.1-1.30); MONOCYTES % (AUTO) 12.4 % (2.0-12.0); NEUTROPHILS % (AUTO) 52.9 % (43.0-81.0); PLATELET COUNT (AUTO) 321 K/uL (150-450); RED BLOOD CELL COUNT(AUTO) 3.21 MIL/uL (4.5-6.0); RED CELL DISTRIBUTION WIDTH 18.7 % (11.5-15.0); WHITE BLOOD COUNT (AUTO) 7.6 K/uL (4.3-11.0)
[2023-08-28] MEDS: LEVOTHYROXINE SODIUM 25 MCG TABLET PO SCH (07:30)
[2023-08-28 07:38] LABS: CALCIUM, SERUM 8.6 mg/dL (8.5-10.1); CREATININE 0.5 mg/dL (0.6-1.3); MAGNESIUM 1.5 mg/dL (1.8-2.4); PHOSPHORUS 3.3 mg/dL (2.5-4.9); POTASSIUM 3.4 mmol/L (3.5-5.1)
[2023-08-28 07:51] LABS: CHOLESTEROL 93 mg/dL (<200); LDL 40 mg/dL (0-99); TRIGLYCERIDES 159 mg/dL (30-150)
[2023-08-28 07:52] LABS: HDL CHOLESTEROL < 10 mg/dL (40-60)
[2023-08-28 08:00] VITALS: BP 128/67; TEMP 98.5; O2SAT 99
[2023-08-28] MEDS: LIPASE/PROTEASE/AMYLASE 1 EACH CAPSULE.DR PO SCH ×3 (08:00→17:05)
[2023-08-28] MEDS: CHLORHEXIDINE GLUCONATE 15 ML UDC MM SCH ×2 (08:52→20:28)
[2023-08-28] MEDS: HYDROCORTISONE 5 MG TABLET PO SCH ×2 (08:52→16:19)
[2023-08-28] MEDS: ASPIRIN EC 81 MG TABLET.DR PO SCH (08:52)
[2023-08-28] MEDS: POLYETHYLENE GLYCOL 3350 17 GM POWD.PACK PO SCH (08:53)
[2023-08-28] MEDS: DULOXETINE HCL 30 MG CAPSULE.DR PO SCH ×2 (08:53→21:00)
[2023-08-28] MEDS: PANTOPRAZOLE 40 MG/PACK PACK PO SCH (08:53)
[2023-08-28] MEDS: BUPRENORPHINE HCL 2 MG TAB.SUBL SL SCH ×3 (08:54→16:20)
[2023-08-28] MEDS: CHOLECALCIFEROL 1,000 UNIT TABLET (VIT D3) PO SCH ×2 (08:54→17:06)
[2023-08-28] MEDS: DAKINS QUARTER STRENGTH (0.125%) 480 ML BOTTLE TOP SCH (08:54)
[2023-08-28] MEDS: NITROGLYCERIN 30 GM TUBE TP SCH ×2 (09:05→20:37)
[2023-08-28] MEDS: POTASSIUM CL. PREMIX PERIPHER. 50 ML IV SCH ×2 (09:22→10:52)
[2023-08-28] MEDS: Magnesium 1GM/D5W 100ML PREMIX 100 ML IV SCH ×2 (10:09→12:31)
[2023-08-28 12:00] VITALS: BP 135/56; TEMP 98.7; O2SAT 99
[2023-08-28] MEDS: ENOXAPARIN SODIUM 40 MG/0.4 ML DISP.SYRIN SQ SCH (12:37)
[2023-08-28] MEDS: DAPTOMYCIN 500 MG in IV NS 0.9% 50 ML IV SCH (13:43)
[2023-08-28 16:00] VITALS: BP 114/67; TEMP 98.4; O2SAT 99
[2023-08-28] MEDS: CYANOCOBALAMIN 500 MCG TABLET PO SCH (17:06)
[2023-08-28] MEDS: ASCORBIC ACID 500 MG TABLET PO SCH (17:06)
[2023-08-28 20:00] VITALS: BP 145/80; TEMP 98.2; O2SAT 99
[2023-08-28] MEDS: SENNOSIDES 8.6 MG TABLET PO SCH (22:00)
[2023-08-28] MEDS: MIRTAZAPINE 15 MG TABLET PO SCH (22:00)
[2023-08-28] MEDS: LORAZEPAM INJ 2 MG/ML VIAL IV PRN (22:57)
[2023-08-28] MEDS: INSULIN REGULAR, HUMAN 100 UNIT/ML 3 ML VIAL SQ PRN (23:56)
[2023-08-29] VITALS: BP 158/75; TEMP 98.2; O2SAT 99
[2023-08-29] MEDS ORDERED: HYDROMORPHONE 1 MG/1 ML DISP.SYRIN IV ONE (01:30)
[2023-08-29] MEDS: IV D5/0.45 NACL 1,000 ML IV PRN ×2 (02:27→14:10)
[2023-08-29] MEDS: diphenhydrAMINE HCL 50 MG/ML VIAL IV PRN ×3 (03:00→22:45)
[2023-08-29 04:00] VITALS: BP 140/82; TEMP 98.4; O2SAT 98
[2023-08-29] MEDS: QUETIAPINE FUMARATE 100 MG TABLET PO SCH ×3 (05:00→21:00)
[2023-08-29] MEDS: GABAPENTIN 300 MG CAPSULE PO SCH ×3 (05:00→21:00)
[2023-08-29] MEDS: TIZANIDINE HCL 4 MG TABLET PO SCH ×3 (05:00→21:00)
[2023-08-29] MEDS: METOPROLOL TARTRATE 50 MG TABLET GT SCH ×4 (06:00→17:13)
[2023-08-29] MEDS: BLOOD SUGAR DIAGNOSTIC 1 EACH STRIP IN SCH ×4 (06:00→17:40)
[2023-08-29] MEDS: LEVOTHYROXINE SODIUM 25 MCG TABLET PO SCH (07:30)
[2023-08-29] MEDS: LIPASE/PROTEASE/AMYLASE 1 EACH CAPSULE.DR PO SCH ×3 (07:32→17:13)
[2023-08-29 08:00] VITALS: BP 120/85; TEMP 98.9; O2SAT 100
[2023-08-29] MEDS: ASPIRIN EC 81 MG TABLET.DR PO SCH (08:07)
[2023-08-29] MEDS: HYDROCORTISONE 5 MG TABLET PO SCH ×2 (08:07→16:18)
[2023-08-29] MEDS: POLYETHYLENE GLYCOL 3350 17 GM POWD.PACK PO SCH (08:08)
[2023-08-29] MEDS: PANTOPRAZOLE 40 MG/PACK PACK PO SCH (08:08)
[2023-08-29] MEDS: DULOXETINE HCL 30 MG CAPSULE.DR PO SCH ×2 (08:08→21:00)
[2023-08-29] MEDS: CHOLECALCIFEROL 1,000 UNIT TABLET (VIT D3) PO SCH ×2 (08:08→17:13)
[2023-08-29] MEDS: BUPRENORPHINE HCL 2 MG TAB.SUBL SL SCH ×3 (08:09→16:18)
[2023-08-29] MEDS: CHLORHEXIDINE GLUCONATE 15 ML UDC MM SCH ×2 (08:37→21:44)
[2023-08-29] MEDS: DAKINS QUARTER STRENGTH (0.125%) 480 ML BOTTLE TOP SCH (08:38)
[2023-08-29] MEDS: NITROGLYCERIN 30 GM TUBE TP SCH ×2 (08:38→21:45)
[2023-08-29 09:13] LABS: ALBUMIN 1.5 g/dL (3.4-5.0); BILIRUBIN,TOTAL 0.5 mg/dL (0.2-1.0); CALCIUM, SERUM 8.3 mg/dL (8.5-10.1); CREATININE 0.5 mg/dL (0.6-1.3); MAGNESIUM 1.7 mg/dL (1.8-2.4); PHOSPHORUS 2.8 mg/dL (2.5-4.9); POTASSIUM 3.4 mmol/L (3.5-5.1); TOTAL PROTEIN, SERUM 5.8 g/dL (6.4-8.2)
[2023-08-29] MEDS: ENOXAPARIN SODIUM 40 MG/0.4 ML DISP.SYRIN SQ SCH (11:16)
[2023-08-29 11:24] LABS: BASOPHILS % (AUTO) 0.2 % (0.0-2.0); EOSINOPHILS # (AUTO) 0.6 K/uL (0.0-0.7); EOSINOPHILS % (AUTO) 6.3 % (0.0-6.0); HEMATOCRIT 31 % (39-51); HEMOGLOBIN 8.9 g/dL (13.5-17.5); LYMPHOCYTES # (AUTO) 1.1 K/uL (0.8-4.8); LYMPHOCYTES % (AUTO) 11.3 % (20.0-44.0); MEAN CORPUSCULAR HEMOGLOBIN 27 PG (26.0-33.0); MEAN CORPUSCULAR HGB CONC 29 g/dl (31.0-36.0); MEAN CORPUSCULAR VOLUME 94 fL (80-96); MONOCYTES # (AUTO) 1.8 K/uL (0.1-1.30); MONOCYTES % (AUTO) 17.7 % (2.0-12.0); NEUTROPHILS # (AUTO) 6.5 K/uL (1.8-8.9); NEUTROPHILS % (AUTO) 64.5 % (43.0-81.0); PLATELET COUNT (AUTO) 311 K/uL (150-450); RED BLOOD CELL COUNT(AUTO) 3.24 MIL/uL (4.5-6.0); RED CELL DISTRIBUTION WIDTH 19.6 % (11.5-15.0)
[2023-08-29 12:00] VITALS: BP 130/73; TEMP 97.7; O2SAT 98
[2023-08-29] MEDS: INSULIN REGULAR, HUMAN 100 UNIT/ML 3 ML VIAL SQ PRN (12:25)
[2023-08-29] MEDS: DAPTOMYCIN 500 MG in IV NS 0.9% 50 ML IV SCH (13:39)
[2023-08-29] MEDS: Magnesium 1GM/D5W 100ML PREMIX 100 ML IV SCH ×2 (14:03→14:32)
[2023-08-29 16:00] VITALS: BP 131/75; TEMP 97.7; O2SAT 99
[2023-08-29] MEDS ORDERED: TPN#1 IV SCH ×4 (16:00)
[2023-08-29] MEDS: ASCORBIC ACID 500 MG TABLET PO SCH (17:13)
[2023-08-29] MEDS: CYANOCOBALAMIN 500 MCG TABLET PO SCH (17:13)
[2023-08-29 20:00] VITALS: BP 118/70; TEMP 99; O2SAT 99
[2023-08-29] MEDS: SENNOSIDES 8.6 MG TABLET PO SCH (21:45)
[2023-08-29] MEDS: MIRTAZAPINE 15 MG TABLET PO SCH (21:45)
[2023-08-30] VITALS: BP 126/79; TEMP 98.8; O2SAT 99
[2023-08-30] MEDS: BLOOD SUGAR DIAGNOSTIC 1 EACH STRIP IN SCH ×5 (00:28→23:49)
[2023-08-30] MEDS: INSULIN REGULAR, HUMAN 100 UNIT/ML 3 ML VIAL SQ PRN ×5 (00:39→23:52)
[2023-08-30 04:00] VITALS: BP 112/83; TEMP 98.8; O2SAT 99
[2023-08-30] MEDS: QUETIAPINE FUMARATE 100 MG TABLET PO SCH ×3 (05:00→20:43)
[2023-08-30] MEDS: GABAPENTIN 300 MG CAPSULE PO SCH ×3 (05:00→20:42)
[2023-08-30] MEDS: TIZANIDINE HCL 4 MG TABLET PO SCH ×3 (05:00→20:43)
[2023-08-30] MEDS: METOPROLOL TARTRATE 50 MG TABLET GT SCH ×4 (06:00→17:31)
[2023-08-30] MEDS: LEVOTHYROXINE SODIUM 25 MCG TABLET PO SCH (07:27)
[2023-08-30] MEDS: LIPASE/PROTEASE/AMYLASE 1 EACH CAPSULE.DR PO SCH ×3 (07:27→17:35)
[2023-08-30 08:00] VITALS: BP 122/72; TEMP 98.8; O2SAT 99
[2023-08-30] MEDS: ASPIRIN EC 81 MG TABLET.DR PO SCH (08:20)
[2023-08-30] MEDS: HYDROCORTISONE 5 MG TABLET PO SCH ×2 (08:20→17:00)
[2023-08-30] MEDS: CHOLECALCIFEROL 1,000 UNIT TABLET (VIT D3) PO SCH ×2 (08:20→17:36)
[2023-08-30] MEDS: BUPRENORPHINE HCL 2 MG TAB.SUBL SL SCH ×3 (08:20→17:00)
[2023-08-30] MEDS: POLYETHYLENE GLYCOL 3350 17 GM POWD.PACK PO SCH (08:20)
[2023-08-30] MEDS: PANTOPRAZOLE 40 MG/PACK PACK PO SCH (08:20)
[2023-08-30] MEDS: DULOXETINE HCL 30 MG CAPSULE.DR PO SCH ×2 (08:20→20:42)
[2023-08-30] MEDS: CHLORHEXIDINE GLUCONATE 15 ML UDC MM SCH ×2 (08:23→20:35)
[2023-08-30] MEDS: NITROGLYCERIN 30 GM TUBE TP SCH ×2 (08:24→20:36)
[2023-08-30] MEDS: DAKINS QUARTER STRENGTH (0.125%) 480 ML BOTTLE TOP SCH (08:25)
[2023-08-30] MEDS: diphenhydrAMINE HCL 50 MG/ML VIAL IV PRN (09:54)
[2023-08-30] MEDS: ENOXAPARIN SODIUM 40 MG/0.4 ML DISP.SYRIN SQ SCH (11:33)
[2023-08-30] MEDS: LORAZEPAM INJ 2 MG/ML VIAL IV PRN (11:33)
[2023-08-30 12:00] VITALS: BP 129/79; TEMP 98.4; O2SAT 99
[2023-08-30 12:20] LABS: CALCIUM, SERUM 8.8 mg/dL (8.5-10.1); CREATININE 0.5 mg/dL (0.6-1.3); POTASSIUM 3.1 mmol/L (3.5-5.1)
[2023-08-30 12:32] LABS: BILIRUBIN,TOTAL 0.6 mg/dL (0.2-1.0); MAGNESIUM 1.5 mg/dL (1.8-2.4); PHOSPHORUS 1.7 mg/dL (2.5-4.9); TOTAL PROTEIN, SERUM 5.6 g/dL (6.4-8.2)
[2023-08-30 12:33] LABS: ALBUMIN 1.1 g/dL (3.4-5.0)
[2023-08-30] MEDS: DAPTOMYCIN 500 MG in IV NS 0.9% 50 ML IV SCH (12:34)
[2023-08-30] MEDS: Magnesium 1GM/D5W 100ML PREMIX 100 ML IV SCH ×2 (14:57→16:30)
[2023-08-30 15:59] LABS: BASOPHILS # (AUTO) 0.1 K/uL (0.0-0.2); BASOPHILS % (AUTO) 0.7 % (0.0-2.0); EOSINOPHILS # (AUTO) 0.8 K/uL (0.0-0.7); EOSINOPHILS % (AUTO) 8.8 % (0.0-6.0); HEMATOCRIT 27 % (39-51); HEMOGLOBIN 8.3 g/dL (13.5-17.5); LYMPHOCYTES # (AUTO) 1.2 K/uL (0.8-4.8); LYMPHOCYTES % (AUTO) 13.1 % (20.0-44.0); MEAN CORPUSCULAR HEMOGLOBIN 27 PG (26.0-33.0); MEAN CORPUSCULAR HGB CONC 31 g/dl (31.0-36.0); MEAN CORPUSCULAR VOLUME 86 fL (80-96); MONOCYTES # (AUTO) 1.5 K/uL (0.1-1.30); MONOCYTES % (AUTO) 17.2 % (2.0-12.0); NEUTROPHILS # (AUTO) 5.4 K/uL (1.8-8.9); NEUTROPHILS % (AUTO) 60.2 % (43.0-81.0); PLATELET COUNT (AUTO) 321 K/uL (150-450); RED BLOOD CELL COUNT(AUTO) 3.13 MIL/uL (4.5-6.0); RED CELL DISTRIBUTION WIDTH 18.6 % (11.5-15.0)
[2023-08-30 16:00] VITALS: BP 122/72; TEMP 98.2; O2SAT 99
[2023-08-30] MEDS ORDERED: TPN BAG 2 IV SCH ×4 (16:00)
[2023-08-30] MEDS ORDERED: POTASSIUM PHOSPHATE MM 7.5 MMOL in IV NS 0.9% 100 ML IV SCH (16:00)
[2023-08-30] MEDS: POTASSIUM CL. PREMIX PERIPHER. 50 ML IV SCH ×4 (17:04→21:07)
[2023-08-30 17:25] LABS: ANISOCYTOSIS 1+; EOSINOPHILS % (MANUAL) 10 % (0-4); LYMPHOCYTES % (MANUAL) 13 % (16-48); MONOCYTES % (MANUAL) 16 % (0-11.0); NEUTROPHILS % (MANUAL) 61 (42-76); PLATELET ESTIMATE ADEQUATE; TARGET CELLS 2+
[2023-08-30 17:26] LABS: HYPOCHROMASIA 1+
[2023-08-30] MEDS: CYANOCOBALAMIN 500 MCG TABLET PO SCH (17:36)
[2023-08-30] MEDS: ASCORBIC ACID 500 MG TABLET PO SCH (17:36)
[2023-08-30 20:00] VITALS: BP 141/86; TEMP 98.9; O2SAT 99
[2023-08-30] MEDS: MIRTAZAPINE 15 MG TABLET PO SCH (22:00)
[2023-08-30] MEDS: SENNOSIDES 8.6 MG TABLET PO SCH (22:00)
[2023-08-31] VITALS: BP 178/90; TEMP 97.8; O2SAT 99
[2023-08-31] MEDS: LORAZEPAM INJ 2 MG/ML VIAL IV PRN ×2 (00:08→13:01)
[2023-08-31] MEDS: hydrALAZINE HCL IV 20 MG VIAL IV PRN ×2 (00:37→12:16)
[2023-08-31] MEDS: HYDROMORPHONE 1 MG/1 ML DISP.SYRIN IV PRN ×3 (02:40→17:24)
[2023-08-31 04:00] VITALS: BP 156/94; TEMP 97.8; O2SAT 99
[2023-08-31] MEDS: TIZANIDINE HCL 4 MG TABLET PO SCH ×3 (04:12→21:00)
[2023-08-31] MEDS: QUETIAPINE FUMARATE 100 MG TABLET PO SCH ×3 (04:12→21:00)
[2023-08-31] MEDS: GABAPENTIN 300 MG CAPSULE PO SCH ×3 (04:12→21:00)
[2023-08-31] MEDS: METOPROLOL TARTRATE 50 MG TABLET GT SCH ×4 (05:24→18:00)
[2023-08-31] MEDS: BLOOD SUGAR DIAGNOSTIC 1 EACH STRIP IN SCH ×3 (05:34→18:00)
[2023-08-31] MEDS: INSULIN REGULAR, HUMAN 100 UNIT/ML 3 ML VIAL SQ PRN ×3 (05:38→17:26)
[2023-08-31] MEDS: LEVOTHYROXINE SODIUM 25 MCG TABLET PO SCH (07:30)
[2023-08-31] MEDS: LIPASE/PROTEASE/AMYLASE 1 EACH CAPSULE.DR PO SCH ×3 (07:39→18:00)
[2023-08-31 08:00] VITALS: BP 163/88; TEMP 97.5; O2SAT 100
[2023-08-31] MEDS: ASPIRIN EC 81 MG TABLET.DR PO SCH (08:06)
[2023-08-31] MEDS: PANTOPRAZOLE 40 MG/PACK PACK PO SCH (08:07)
[2023-08-31] MEDS: CHOLECALCIFEROL 1,000 UNIT TABLET (VIT D3) PO SCH ×2 (08:07→18:00)
[2023-08-31] MEDS: DULOXETINE HCL 30 MG CAPSULE.DR PO SCH ×2 (08:07→21:00)
[2023-08-31] MEDS: HYDROCORTISONE 5 MG TABLET PO SCH ×2 (08:07→17:00)
[2023-08-31] MEDS: POLYETHYLENE GLYCOL 3350 17 GM POWD.PACK PO SCH (08:07)
[2023-08-31] MEDS: BUPRENORPHINE HCL 2 MG TAB.SUBL SL SCH ×3 (08:23→16:59)
[2023-08-31] MEDS: CHLORHEXIDINE GLUCONATE 15 ML UDC MM SCH ×2 (09:46→21:15)
[2023-08-31] MEDS: NITROGLYCERIN 30 GM TUBE TP SCH ×2 (09:52→21:15)
[2023-08-31] MEDS: DAKINS QUARTER STRENGTH (0.125%) 480 ML BOTTLE TOP SCH (09:52)
[2023-08-31 12:00] VITALS: BP 165/90; TEMP 98.1; O2SAT 100
[2023-08-31 12:00] LABS: BASOPHILS % (AUTO) 0.6 % (0.0-2.0); EOSINOPHILS # (AUTO) 0.4 K/uL (0.0-0.7); EOSINOPHILS % (AUTO) 4.8 % (0.0-6.0); HEMATOCRIT 26 % (39-51); HEMOGLOBIN 8.4 g/dL (13.5-17.5); LYMPHOCYTES # (AUTO) 1.6 K/uL (0.8-4.8); LYMPHOCYTES % (AUTO) 19.5 % (20.0-44.0); MEAN CORPUSCULAR HEMOGLOBIN 27 PG (26.0-33.0); MEAN CORPUSCULAR HGB CONC 32 g/dl (31.0-36.0); MEAN CORPUSCULAR VOLUME 84 fL (80-96); MONOCYTES % (AUTO) 11.9 % (2.0-12.0); NEUTROPHILS # (AUTO) 5.3 K/uL (1.8-8.9); NEUTROPHILS % (AUTO) 63.2 % (43.0-81.0); PLATELET COUNT (AUTO) 322 K/uL (150-450); RED BLOOD CELL COUNT(AUTO) 3.12 MIL/uL (4.5-6.0); RED CELL DISTRIBUTION WIDTH 18.4 % (11.5-15.0); WHITE BLOOD COUNT (AUTO) 8.4 K/uL (4.3-11.0)
[2023-08-31] MEDS ORDERED: TPN#3 IV SCH ×4 (12:00)
[2023-08-31 12:07] LABS: BILIRUBIN,TOTAL 0.4 mg/dL (0.2-1.0); CALCIUM, SERUM 8.3 mg/dL (8.5-10.1); CREATININE 0.5 mg/dL (0.6-1.3); MAGNESIUM 1.6 mg/dL (1.8-2.4); PHOSPHORUS 1.7 mg/dL (2.5-4.9); TOTAL PROTEIN, SERUM 5.9 g/dL (6.4-8.2)
[2023-08-31] MEDS: ENOXAPARIN SODIUM 40 MG/0.4 ML DISP.SYRIN SQ SCH (12:16)
[2023-08-31 12:18] LABS: ALBUMIN 1.4 g/dL (3.4-5.0); POTASSIUM 2.7 mmol/L (3.5-5.1)
[2023-08-31] MEDS: NITROGLYCERIN 0.4 MG/TAB BOTTLE SL PRN ×3 (13:20→21:01)
[2023-08-31] MEDS: POTASSIUM CL. PREMIX PERIPHER. 50 ML IV SCH ×4 (14:55→23:18)
[2023-08-31] MEDS ORDERED: POTASSIUM PHOSPHATE MM 7.5 MMOL in IV NS 0.9% 100 ML IV SCH (15:00)
[2023-08-31] MEDS: DAPTOMYCIN 500 MG in IV NS 0.9% 50 ML IV SCH (15:06)
[2023-08-31 16:00] VITALS: BP 149/78; TEMP 97.5; O2SAT 100
[2023-08-31] MEDS: ASCORBIC ACID 500 MG TABLET PO SCH (18:00)
[2023-08-31] MEDS: CYANOCOBALAMIN 500 MCG TABLET PO SCH (18:00)
[2023-08-31 20:00] VITALS: BP 130/106; TEMP 97.7; O2SAT 99
[2023-08-31] MEDS: SENNOSIDES 8.6 MG TABLET PO SCH (22:00)
[2023-08-31] MEDS: MIRTAZAPINE 15 MG TABLET PO SCH (22:00)
[2023-08-31] MEDS ORDERED: POTASSIUM CL. PREMIX PERIPHER. 150 ML ONE (23:13)
[2023-08-31] MEDS ORDERED: Magnesium 1GM/D5W 100ML PREMIX 200 ML IV ONE (23:14)
[2023-08-31] MEDS: Magnesium 1GM/D5W 100ML PREMIX 100 ML IV SCH (23:24)
[2023-09-01] VITALS: BP 148/91; TEMP 98.1; O2SAT 99
[2023-09-01] MEDS: INSULIN REGULAR, HUMAN 100 UNIT/ML 3 ML VIAL SQ PRN ×5 (00:13→23:45)
[2023-09-01] MEDS: POTASSIUM CL. PREMIX PERIPHER. 50 ML IV SCH ×8 (00:15→18:21)
[2023-09-01] MEDS: Magnesium 1GM/D5W 100ML PREMIX 100 ML IV SCH (00:21)
[2023-09-01] MEDS: BLOOD SUGAR DIAGNOSTIC 1 EACH STRIP IN SCH ×5 (00:30→23:42)
[2023-09-01] MEDS: HYDROMORPHONE 1 MG/1 ML DISP.SYRIN IV PRN ×3 (01:58→23:28)
[2023-09-01 04:00] VITALS: BP 140/95; TEMP 98.2; O2SAT 98
[2023-09-01] MEDS: LORAZEPAM INJ 2 MG/ML VIAL IV PRN ×2 (04:35→14:11)
[2023-09-01] MEDS: QUETIAPINE FUMARATE 100 MG TABLET PO SCH ×3 (05:00→21:00)
[2023-09-01] MEDS: GABAPENTIN 300 MG CAPSULE PO SCH ×3 (05:00→21:00)
[2023-09-01] MEDS: TIZANIDINE HCL 4 MG TABLET PO SCH ×3 (05:00→21:00)
[2023-09-01] MEDS: METOPROLOL TARTRATE 50 MG TABLET GT SCH ×4 (05:56→17:06)
[2023-09-01] MEDS: LEVOTHYROXINE SODIUM 25 MCG TABLET PO SCH (07:30)
[2023-09-01 08:00] VITALS: BP 140/95; TEMP 98.2; O2SAT 98
[2023-09-01] MEDS: LIPASE/PROTEASE/AMYLASE 1 EACH CAPSULE.DR PO SCH ×3 (08:00→17:07)
[2023-09-01] MEDS ORDERED: TPN BAG 4 IV SCH ×3 (08:00)
[2023-09-01] MEDS: NITROGLYCERIN 30 GM TUBE TP SCH ×2 (08:25→21:57)
[2023-09-01] MEDS: HYDROCORTISONE 5 MG TABLET PO SCH ×2 (08:31→16:43)
[2023-09-01] MEDS: ASPIRIN EC 81 MG TABLET.DR PO SCH (08:31)
[2023-09-01] MEDS: CHOLECALCIFEROL 1,000 UNIT TABLET (VIT D3) PO SCH ×2 (08:32→17:07)
[2023-09-01] MEDS: BUPRENORPHINE HCL 2 MG TAB.SUBL SL SCH ×3 (08:32→16:43)
[2023-09-01] MEDS: POLYETHYLENE GLYCOL 3350 17 GM POWD.PACK PO SCH (08:32)
[2023-09-01] MEDS: DULOXETINE HCL 30 MG CAPSULE.DR PO SCH ×2 (08:32→21:00)
[2023-09-01] MEDS: PANTOPRAZOLE 40 MG/PACK PACK PO SCH (08:32)
[2023-09-01] MEDS: DAKINS QUARTER STRENGTH (0.125%) 480 ML BOTTLE TOP SCH (08:34)
[2023-09-01] MEDS: CHLORHEXIDINE GLUCONATE 15 ML UDC MM SCH ×2 (08:36→21:53)
[2023-09-01 10:09] LABS: CALCIUM, SERUM 8.4 mg/dL (8.5-10.1); CREATININE 0.4 mg/dL (0.6-1.3); MAGNESIUM 1.8 mg/dL (1.8-2.4); PHOSPHORUS 1.3 mg/dL (2.5-4.9)
[2023-09-01] MEDS: hydrALAZINE HCL IV 20 MG VIAL IV PRN (10:18)
[2023-09-01 10:33] LABS: BASOPHILS % (AUTO) 0.4 % (0.0-2.0); EOSINOPHILS # (AUTO) 0.6 K/uL (0.0-0.7); HEMATOCRIT 26 % (39-51); HEMOGLOBIN 8.4 g/dL (13.5-17.5); LYMPHOCYTES # (AUTO) 1.1 K/uL (0.8-4.8); LYMPHOCYTES % (AUTO) 12.6 % (20.0-44.0); MEAN CORPUSCULAR HEMOGLOBIN 27 PG (26.0-33.0); MEAN CORPUSCULAR HGB CONC 32 g/dl (31.0-36.0); MEAN CORPUSCULAR VOLUME 83 fL (80-96); MONOCYTES # (AUTO) 1.2 K/uL (0.1-1.30); MONOCYTES % (AUTO) 13.8 % (2.0-12.0); NEUTROPHILS # (AUTO) 5.9 K/uL (1.8-8.9); NEUTROPHILS % (AUTO) 66.2 % (43.0-81.0); PLATELET COUNT (AUTO) 336 K/uL (150-450); RED BLOOD CELL COUNT(AUTO) 3.18 MIL/uL (4.5-6.0); RED CELL DISTRIBUTION WIDTH 18.7 % (11.5-15.0); WHITE BLOOD COUNT (AUTO) 8.9 K/uL (4.3-11.0)
[2023-09-01 10:49] LABS: POTASSIUM 2.8 mmol/L (3.5-5.1)
[2023-09-01 12:00] VITALS: BP 182/101; TEMP 98.7; O2SAT 98
[2023-09-01] MEDS ORDERED: POTASSIUM PHOSPHATE MM 7.5 MMOL in IV NS 0.9% 100 ML IV SCH (13:00)
[2023-09-01] MEDS: ENOXAPARIN SODIUM 40 MG/0.4 ML DISP.SYRIN SQ SCH (13:34)
[2023-09-01] MEDS: DAPTOMYCIN 500 MG in IV NS 0.9% 50 ML IV SCH (14:18)
[2023-09-01 16:00] VITALS: BP 132/82; TEMP 98.7; O2SAT 98
[2023-09-01] MEDS: CYANOCOBALAMIN 500 MCG TABLET PO SCH (17:07)
[2023-09-01] MEDS: ASCORBIC ACID 500 MG TABLET PO SCH (17:07)
[2023-09-01 20:00] VITALS: BP 136/96; TEMP 97.6; O2SAT 99
[2023-09-01] MEDS: SENNOSIDES 8.6 MG TABLET PO SCH (21:53)
[2023-09-01] MEDS: MIRTAZAPINE 15 MG TABLET PO SCH (21:53)
[2023-09-02] VITALS: BP_SYST 145; BP_SYST 190; BP_DIAS 94; BP_DIAS 97; TEMP 98; TEMP 98.9; O2SAT 98; O2SAT 99
[2023-09-02] MEDS: METOPROLOL TARTRATE 50 MG TABLET GT SCH ×5 (00:59→23:18)
[2023-09-02] MEDS: hydrALAZINE HCL IV 20 MG VIAL IV PRN (01:19)
[2023-09-02] MEDS: LORAZEPAM INJ 2 MG/ML VIAL IV PRN (02:07)
[2023-09-02 04:00] VITALS: BP 142/79; TEMP 97.5; O2SAT 99
[2023-09-02] MEDS ORDERED: TPN BAG 5 IV SCH ×2 (04:00)
[2023-09-02] MEDS: TIZANIDINE HCL 4 MG TABLET PO SCH ×3 (04:27→20:13)
[2023-09-02] MEDS: QUETIAPINE FUMARATE 100 MG TABLET PO SCH ×3 (04:27→20:13)
[2023-09-02] MEDS: GABAPENTIN 300 MG CAPSULE PO SCH ×3 (04:27→20:13)
[2023-09-02] MEDS: BLOOD SUGAR DIAGNOSTIC 1 EACH STRIP IN SCH ×3 (05:48→17:55)
[2023-09-02] MEDS: INSULIN REGULAR, HUMAN 100 UNIT/ML 3 ML VIAL SQ PRN ×3 (05:58→17:04)
[2023-09-02] MEDS: HYDROMORPHONE 1 MG/1 ML DISP.SYRIN IV PRN ×3 (06:07→20:00)
[2023-09-02 06:51] LABS: CALCIUM, SERUM 8.1 mg/dL (8.5-10.1); CREATININE 0.4 mg/dL (0.6-1.3); MAGNESIUM 1.5 mg/dL (1.8-2.4); PHOSPHORUS 1.5 mg/dL (2.5-4.9)
[2023-09-02 06:55] LABS: POTASSIUM 2.8 mmol/L (3.5-5.1)
[2023-09-02] MEDS: LEVOTHYROXINE SODIUM 25 MCG TABLET PO SCH (07:30)
[2023-09-02 08:00] VITALS: BP 160/99; TEMP 97.7; O2SAT 98
[2023-09-02] MEDS: LIPASE/PROTEASE/AMYLASE 1 EACH CAPSULE.DR PO SCH ×3 (08:00→17:54)
[2023-09-02] MEDS: HYDROCORTISONE 5 MG TABLET PO SCH ×2 (09:00→17:00)
[2023-09-02] MEDS: BUPRENORPHINE HCL 2 MG TAB.SUBL SL SCH ×3 (09:00→17:00)
[2023-09-02] MEDS: POLYETHYLENE GLYCOL 3350 17 GM POWD.PACK PO SCH (09:00)
[2023-09-02] MEDS: PANTOPRAZOLE 40 MG/PACK PACK PO SCH (09:00)
[2023-09-02] MEDS: CHOLECALCIFEROL 1,000 UNIT TABLET (VIT D3) PO SCH ×2 (09:00→17:54)
[2023-09-02] MEDS: ASPIRIN EC 81 MG TABLET.DR PO SCH (09:00)
[2023-09-02] MEDS: DULOXETINE HCL 30 MG CAPSULE.DR PO SCH ×2 (09:00→20:13)
[2023-09-02] MEDS: DAKINS QUARTER STRENGTH (0.125%) 480 ML BOTTLE TOP SCH (09:11)
[2023-09-02] MEDS: CHLORHEXIDINE GLUCONATE 15 ML UDC MM SCH ×2 (09:11→20:00)
[2023-09-02] MEDS: NITROGLYCERIN 30 GM TUBE TP SCH ×2 (09:17→20:12)
[2023-09-02] MEDS: Magnesium 1GM/D5W 100ML PREMIX 100 ML IV SCH ×2 (11:17→12:25)
[2023-09-02 12:00] VITALS: BP 133/93; TEMP 97.9; O2SAT 98
[2023-09-02] MEDS ORDERED: DEXTROSE 50%-WATER 50 ML DISP.SYRIN IV PRN (12:00)
[2023-09-02] MEDS: ENOXAPARIN SODIUM 40 MG/0.4 ML DISP.SYRIN SQ SCH (12:07)
[2023-09-02] MEDS: POTASSIUM PHOSPHATE MM 7.5 MMOL in IV NS 0.9% 100 ML IV SCH ×2 (13:27→17:31)
[2023-09-02] MEDS ORDERED: FAT EMULSION 20% 500 ML in PREMIX 1 EA IV SCH (14:00)
[2023-09-02] MEDS: FAT EMULSION 20% 500 ML in PREMIX 1 EA IV SCH (14:12)
[2023-09-02 16:00] VITALS: BP 143/89; TEMP 97.5; O2SAT 98
[2023-09-02] MEDS: DAPTOMYCIN 500 MG in IV NS 0.9% 50 ML IV SCH (16:32)
[2023-09-02] MEDS: ASCORBIC ACID 500 MG TABLET PO SCH (17:54)
[2023-09-02] MEDS: CYANOCOBALAMIN 500 MCG TABLET PO SCH (17:54)
[2023-09-02 20:00] VITALS: BP 163/87; TEMP 97.9; O2SAT 98
[2023-09-02] MEDS: POTASSIUM CL. PREMIX PERIPHER. 50 ML IV SCH ×4 (20:00→23:12)
[2023-09-02] MEDS: diphenhydrAMINE HCL 50 MG/ML VIAL IV PRN (21:47)
[2023-09-02] MEDS: SENNOSIDES 8.6 MG TABLET PO SCH (21:51)
[2023-09-02] MEDS: MIRTAZAPINE 15 MG TABLET PO SCH (21:51)
[2023-09-03] VITALS: BP 145/94; TEMP 97.9; O2SAT 98
[2023-09-03] MEDS ORDERED: TPN BAG #6 IV SCH ×3
[2023-09-03] MEDS: BLOOD SUGAR DIAGNOSTIC 1 EACH STRIP IN SCH ×4 (01:02→17:30)
[2023-09-03] MEDS: LORAZEPAM INJ 2 MG/ML VIAL IV PRN (01:07)
[2023-09-03] MEDS: INSULIN REGULAR, HUMAN 100 UNIT/ML 3 ML VIAL SQ PRN ×4 (01:09→17:33)
[2023-09-03 04:00] VITALS: BP 155/88; TEMP 97.9; O2SAT 98
[2023-09-03] MEDS: HYDROMORPHONE 1 MG/1 ML DISP.SYRIN IV PRN ×2 (04:17→20:27)
[2023-09-03] MEDS: TIZANIDINE HCL 4 MG TABLET PO SCH ×3 (05:00→20:38)
[2023-09-03] MEDS: GABAPENTIN 300 MG CAPSULE PO SCH ×3 (05:00→20:38)
[2023-09-03] MEDS: QUETIAPINE FUMARATE 100 MG TABLET PO SCH ×3 (05:00→20:38)
[2023-09-03] MEDS: METOPROLOL TARTRATE 50 MG TABLET GT SCH ×3 (05:14→17:08)
[2023-09-03] MEDS: LEVOTHYROXINE SODIUM 25 MCG TABLET PO SCH (06:38)
[2023-09-03] MEDS: LIPASE/PROTEASE/AMYLASE 1 EACH CAPSULE.DR PO SCH ×3 (07:37→17:09)
[2023-09-03 07:58] LABS: BASOPHILS # (AUTO) 0.1 K/uL (0.0-0.2); BASOPHILS % (AUTO) 0.5 % (0.0-2.0); EOSINOPHILS # (AUTO) 0.7 K/uL (0.0-0.7); EOSINOPHILS % (AUTO) 5.2 % (0.0-6.0); HEMATOCRIT 27 % (39-51); HEMOGLOBIN 8.3 g/dL (13.5-17.5); LYMPHOCYTES # (AUTO) 1.1 K/uL (0.8-4.8); LYMPHOCYTES % (AUTO) 7.9 % (20.0-44.0); MEAN CORPUSCULAR HEMOGLOBIN 26 PG (26.0-33.0); MEAN CORPUSCULAR HGB CONC 31 g/dl (31.0-36.0); MEAN CORPUSCULAR VOLUME 85 fL (80-96); MONOCYTES # (AUTO) 1.7 K/uL (0.1-1.30); MONOCYTES % (AUTO) 12.1 % (2.0-12.0); NEUTROPHILS # (AUTO) 10.2 K/uL (1.8-8.9); NEUTROPHILS % (AUTO) 74.3 % (43.0-81.0); PLATELET COUNT (AUTO) 313 K/uL (150-450); RED BLOOD CELL COUNT(AUTO) 3.15 MIL/uL (4.5-6.0); RED CELL DISTRIBUTION WIDTH 18.9 % (11.5-15.0); WHITE BLOOD COUNT (AUTO) 13.7 K/uL (4.3-11.0)
[2023-09-03 08:00] VITALS: BP 155/88; TEMP 97.9; O2SAT 98
[2023-09-03 08:20] LABS: CALCIUM, SERUM 8.4 mg/dL (8.5-10.1); CREATININE 0.4 mg/dL (0.6-1.3); MAGNESIUM 1.8 mg/dL (1.8-2.4); PHOSPHORUS 2.3 mg/dL (2.5-4.9); POTASSIUM 3.4 mmol/L (3.5-5.1)
[2023-09-03] MEDS: DULOXETINE HCL 30 MG CAPSULE.DR PO SCH ×2 (08:34→20:38)
[2023-09-03] MEDS: ASPIRIN EC 81 MG TABLET.DR PO SCH (08:34)
[2023-09-03] MEDS: HYDROCORTISONE 5 MG TABLET PO SCH ×2 (08:34→16:47)
[2023-09-03] MEDS: POLYETHYLENE GLYCOL 3350 17 GM POWD.PACK PO SCH (08:35)
[2023-09-03] MEDS: PANTOPRAZOLE 40 MG/PACK PACK PO SCH (08:35)
[2023-09-03] MEDS: CHOLECALCIFEROL 1,000 UNIT TABLET (VIT D3) PO SCH ×2 (08:35→17:09)
[2023-09-03] MEDS: DAKINS QUARTER STRENGTH (0.125%) 480 ML BOTTLE TOP SCH (09:11)
[2023-09-03] MEDS: CHLORHEXIDINE GLUCONATE 15 ML UDC MM SCH ×2 (09:16→20:27)
[2023-09-03] MEDS: BUPRENORPHINE HCL 2 MG TAB.SUBL SL SCH ×3 (09:16→17:14)
[2023-09-03] MEDS: NITROGLYCERIN 30 GM TUBE TP SCH ×2 (09:18→20:27)
[2023-09-03] MEDS: CLONIDINE HCL 0.2MG/24H PTWK 1 EA PATCH TD SCH (09:18)
[2023-09-03] MEDS: POTASSIUM CL. PREMIX PERIPHER. 50 ML IV SCH ×2 (09:30→10:39)
[2023-09-03 10:46] LABS: BAND % (MANUAL) 3 % (0.0-5.0); EOSINOPHILS % (MANUAL) 3 % (0-4); LYMPHOCYTES % (MANUAL) 7 % (16-48); MONOCYTES % (MANUAL) 12 % (0-11.0); NEUTROPHILS % (MANUAL) 75 (42-76); PLATELET ESTIMATE ADEQUATE
[2023-09-03] MEDS: diphenhydrAMINE HCL 50 MG/ML VIAL IV PRN (11:37)
[2023-09-03] MEDS: hydrALAZINE HCL IV 20 MG VIAL IV PRN (11:49)
[2023-09-03] MEDS ORDERED: POTASSIUM PHOSPHATE MM 7.5 MMOL in IV NS 0.9% 100 ML IV SCH (12:00)
[2023-09-03 12:02] VITALS: BP 133/100; TEMP 98; O2SAT 98
[2023-09-03] MEDS: ENOXAPARIN SODIUM 40 MG/0.4 ML DISP.SYRIN SQ SCH (12:36)
[2023-09-03] MEDS: FAT EMULSION 20% 500 ML in PREMIX 1 EA IV SCH (14:04)
[2023-09-03] MEDS: DAPTOMYCIN 500 MG in IV NS 0.9% 50 ML IV SCH (15:24)
[2023-09-03 16:00] VITALS: BP 148/90; TEMP 98; O2SAT 96
[2023-09-03] MEDS: CYANOCOBALAMIN 500 MCG TABLET PO SCH (17:09)
[2023-09-03] MEDS: ASCORBIC ACID 500 MG TABLET PO SCH (17:09)
[2023-09-03 20:00] VITALS: BP 135/85; TEMP 97.9; O2SAT 99
[2023-09-03] MEDS ORDERED: TPN BAG #7 IV SCH ×4 (20:12)
[2023-09-03] MEDS ORDERED: Magnesium 1GM/D5W 100ML PREMIX 100 ML IV SCH (21:00)
[2023-09-03] MEDS: MIRTAZAPINE 15 MG TABLET PO SCH (21:49)
[2023-09-03] MEDS: SENNOSIDES 8.6 MG TABLET PO SCH (21:49)
[2023-09-04] VITALS: BP 130/85; TEMP 97.9; O2SAT 99
[2023-09-04] MEDS: diphenhydrAMINE HCL 50 MG/ML VIAL IV PRN ×2 (00:05→10:32)
[2023-09-04] MEDS: BLOOD SUGAR DIAGNOSTIC 1 EACH STRIP IN SCH ×4 (00:27→18:16)
[2023-09-04 04:00] VITALS: BP 141/92; TEMP 97.9; O2SAT 98
[2023-09-04] MEDS: QUETIAPINE FUMARATE 100 MG TABLET PO SCH ×3 (05:00→21:00)
[2023-09-04] MEDS: GABAPENTIN 300 MG CAPSULE PO SCH ×3 (05:00→21:00)
[2023-09-04] MEDS: TIZANIDINE HCL 4 MG TABLET PO SCH ×3 (05:00→21:00)
[2023-09-04] MEDS: METOPROLOL TARTRATE 50 MG TABLET GT SCH ×4 (05:10→18:00)
[2023-09-04] MEDS: HYDROMORPHONE 1 MG/1 ML DISP.SYRIN IV PRN ×2 (05:15→15:10)
[2023-09-04] MEDS: INSULIN REGULAR, HUMAN 100 UNIT/ML 3 ML VIAL SQ PRN ×3 (05:25→18:45)
[2023-09-04] MEDS: LEVOTHYROXINE SODIUM 25 MCG TABLET PO SCH (06:43)
[2023-09-04 08:00] VITALS: BP 147/86; TEMP 97.8; O2SAT 99
[2023-09-04] MEDS: LIPASE/PROTEASE/AMYLASE 1 EACH CAPSULE.DR PO SCH ×3 (08:00→18:00)
[2023-09-04 08:02] LABS: CALCIUM, SERUM 8.8 mg/dL (8.5-10.1); CREATININE 0.4 mg/dL (0.6-1.3); MAGNESIUM 1.9 mg/dL (1.8-2.4); PHOSPHORUS 2.8 mg/dL (2.5-4.9); POTASSIUM 3.3 mmol/L (3.5-5.1)
[2023-09-04] MEDS: PANTOPRAZOLE 40 MG/PACK PACK PO SCH (08:46)
[2023-09-04] MEDS: DULOXETINE HCL 30 MG CAPSULE.DR PO SCH ×2 (08:46→21:00)
[2023-09-04] MEDS: ASPIRIN EC 81 MG TABLET.DR PO SCH (08:46)
[2023-09-04] MEDS: POLYETHYLENE GLYCOL 3350 17 GM POWD.PACK PO SCH (08:46)
[2023-09-04] MEDS: HYDROCORTISONE 5 MG TABLET PO SCH ×2 (08:46→17:00)
[2023-09-04] MEDS: CHOLECALCIFEROL 1,000 UNIT TABLET (VIT D3) PO SCH ×2 (08:47→18:00)
[2023-09-04] MEDS: BUPRENORPHINE HCL 2 MG TAB.SUBL SL SCH ×3 (08:47→18:35)
[2023-09-04] MEDS: CHLORHEXIDINE GLUCONATE 15 ML UDC MM SCH ×2 (09:58→23:10)
[2023-09-04] MEDS: LORAZEPAM INJ 2 MG/ML VIAL IV PRN (09:58)
[2023-09-04] MEDS: NITROGLYCERIN 30 GM TUBE TP SCH ×2 (10:09→22:01)
[2023-09-04] MEDS: DAKINS QUARTER STRENGTH (0.125%) 480 ML BOTTLE TOP SCH (10:11)
[2023-09-04 12:00] VITALS: BP 156/90; TEMP 96; O2SAT 99
[2023-09-04] MEDS: POTASSIUM CL. PREMIX PERIPHER. 50 ML IV SCH ×2 (13:20→14:58)
[2023-09-04] MEDS: ENOXAPARIN SODIUM 40 MG/0.4 ML DISP.SYRIN SQ SCH (13:31)
[2023-09-04] MEDS: DAPTOMYCIN 500 MG in IV NS 0.9% 50 ML IV SCH (14:34)
[2023-09-04] MEDS: FAT EMULSION 20% 500 ML in PREMIX 1 EA IV SCH (14:35)
[2023-09-04 16:00] VITALS: BP 139/87; TEMP 97.8; O2SAT 98
[2023-09-04] MEDS ORDERED: TPN BAG #8 IV SCH ×4 (16:51)
[2023-09-04] MEDS: CYANOCOBALAMIN 500 MCG TABLET PO SCH (18:00)
[2023-09-04] MEDS: ASCORBIC ACID 500 MG TABLET PO SCH (18:00)
[2023-09-04 20:00] VITALS: BP 119/71; TEMP 98; O2SAT 98
[2023-09-04] MEDS ORDERED: POTASSIUM CL. PREMIX PERIPHER. 50 ML IV SCH (21:00)
[2023-09-04] MEDS: MIRTAZAPINE 15 MG TABLET PO SCH (22:00)
[2023-09-04] MEDS: SENNOSIDES 8.6 MG TABLET PO SCH (22:00)
[2023-09-05] VITALS: BP 156/86; TEMP 97.5; O2SAT 97
[2023-09-05] MEDS: BLOOD SUGAR DIAGNOSTIC 1 EACH STRIP IN SCH ×4 (00:01→18:04)
[2023-09-05] MEDS: METOPROLOL TARTRATE 50 MG TABLET GT SCH ×4 (00:59→18:00)
[2023-09-05 04:00] VITALS: BP 118/85; TEMP 97.5; O2SAT 99
[2023-09-05] MEDS: GABAPENTIN 300 MG CAPSULE PO SCH ×3 (04:34→21:00)
[2023-09-05] MEDS: QUETIAPINE FUMARATE 100 MG TABLET PO SCH ×3 (04:35→21:00)
[2023-09-05] MEDS: TIZANIDINE HCL 4 MG TABLET PO SCH ×3 (04:35→21:00)
[2023-09-05] MEDS: INSULIN REGULAR, HUMAN 100 UNIT/ML 3 ML VIAL SQ PRN ×3 (06:19→18:34)
[2023-09-05 07:18] LABS: CALCIUM, SERUM 8.7 mg/dL (8.5-10.1); CREATININE 0.3 mg/dL (0.6-1.3); MAGNESIUM 1.9 mg/dL (1.8-2.4); PHOSPHORUS 3.1 mg/dL (2.5-4.9)
[2023-09-05] MEDS: LEVOTHYROXINE SODIUM 25 MCG TABLET PO SCH (07:30)
[2023-09-05 08:00] VITALS: BP 111/91; TEMP 98.5; O2SAT 99
[2023-09-05] MEDS: LIPASE/PROTEASE/AMYLASE 1 EACH CAPSULE.DR PO SCH ×3 (08:00→18:00)
[2023-09-05] MEDS: HYDROCORTISONE 5 MG TABLET PO SCH ×2 (09:00→17:00)
[2023-09-05] MEDS: ASPIRIN EC 81 MG TABLET.DR PO SCH (09:00)
[2023-09-05] MEDS: PANTOPRAZOLE 40 MG/PACK PACK PO SCH (09:00)
[2023-09-05] MEDS: DULOXETINE HCL 30 MG CAPSULE.DR PO SCH ×2 (09:00→21:00)
[2023-09-05] MEDS: POLYETHYLENE GLYCOL 3350 17 GM POWD.PACK PO SCH (09:00)
[2023-09-05] MEDS: CHOLECALCIFEROL 1,000 UNIT TABLET (VIT D3) PO SCH ×2 (09:00→18:00)
[2023-09-05] MEDS: NITROGLYCERIN 30 GM TUBE TP SCH ×2 (09:57→21:59)
[2023-09-05] MEDS: DAKINS QUARTER STRENGTH (0.125%) 480 ML BOTTLE TOP SCH (10:01)
[2023-09-05] MEDS: CHLORHEXIDINE GLUCONATE 15 ML UDC MM SCH ×2 (10:01→21:58)
[2023-09-05] MEDS: PANTOPRAZOLE 40 MG VIAL IV SCH (11:07)
[2023-09-05] MEDS: BUPRENORPHINE HCL 2 MG TAB.SUBL SL SCH ×4 (11:08→18:32)
[2023-09-05] MEDS: ENOXAPARIN SODIUM 40 MG/0.4 ML DISP.SYRIN SQ SCH (11:25)
[2023-09-05 12:00] VITALS: BP 147/98; TEMP 97.9; O2SAT 100
[2023-09-05] MEDS ORDERED: TPN BAG #9 IV SCH ×4 (13:39)
[2023-09-05] MEDS: DAPTOMYCIN 500 MG in IV NS 0.9% 50 ML IV SCH (14:13)
[2023-09-05] MEDS: FAT EMULSION 20% 500 ML in PREMIX 1 EA IV SCH (14:52)
[2023-09-05] MEDS: HYDROMORPHONE 1 MG/1 ML DISP.SYRIN IV PRN (14:57)
[2023-09-05 16:00] VITALS: BP 129/64; TEMP 98.4; O2SAT 97
[2023-09-05] MEDS: CYANOCOBALAMIN 500 MCG TABLET PO SCH (18:00)
[2023-09-05] MEDS: ASCORBIC ACID 500 MG TABLET PO SCH (18:00)
[2023-09-05 20:00] VITALS: BP 122/74; TEMP 96.8; O2SAT 99
[2023-09-05] MEDS: MIRTAZAPINE 15 MG TABLET PO SCH (22:00)
[2023-09-05] MEDS: SENNOSIDES 8.6 MG TABLET PO SCH (22:00)
[2023-09-06] VITALS: BP 135/84; TEMP 96.8; O2SAT 97
[2023-09-06] MEDS: BLOOD SUGAR DIAGNOSTIC 1 EACH STRIP IN SCH ×5 (00:08→23:08)
[2023-09-06] MEDS: INSULIN REGULAR, HUMAN 100 UNIT/ML 3 ML VIAL SQ PRN ×4 (01:14→23:19)
[2023-09-06 04:00] VITALS: BP 143/77; TEMP 97.7; O2SAT 98
[2023-09-06] MEDS ORDERED: TPN BAG #10 IV SCH ×3 (04:24)
[2023-09-06] MEDS: QUETIAPINE FUMARATE 100 MG TABLET PO SCH ×3 (04:47→20:23)
[2023-09-06] MEDS: GABAPENTIN 300 MG CAPSULE PO SCH ×3 (04:47→20:23)
[2023-09-06] MEDS: TIZANIDINE HCL 4 MG TABLET PO SCH ×3 (04:47→20:24)
[2023-09-06] MEDS: METOPROLOL TARTRATE 50 MG TABLET GT SCH ×5 (05:21→23:08)
[2023-09-06] MEDS: LEVOTHYROXINE SODIUM 25 MCG TABLET PO SCH (07:30)
[2023-09-06 08:00] VITALS: BP 143/84; TEMP 97.9; O2SAT 98
[2023-09-06] MEDS: LIPASE/PROTEASE/AMYLASE 1 EACH CAPSULE.DR PO SCH ×3 (08:00→17:01)
[2023-09-06 08:06] LABS: CALCIUM, SERUM 8.6 mg/dL (8.5-10.1); CREATININE 0.3 mg/dL (0.6-1.3); MAGNESIUM 1.9 mg/dL (1.8-2.4); PHOSPHORUS 2.9 mg/dL (2.5-4.9); POTASSIUM 4.5 mmol/L (3.5-5.1)
[2023-09-06] MEDS: HYDROCORTISONE 5 MG TABLET PO SCH ×2 (09:00→17:00)
[2023-09-06] MEDS: ASPIRIN EC 81 MG TABLET.DR PO SCH (09:00)
[2023-09-06] MEDS: DULOXETINE HCL 30 MG CAPSULE.DR PO SCH ×2 (09:00→20:23)
[2023-09-06] MEDS: CHOLECALCIFEROL 1,000 UNIT TABLET (VIT D3) PO SCH ×2 (09:00→17:02)
[2023-09-06] MEDS: POLYETHYLENE GLYCOL 3350 17 GM POWD.PACK PO SCH (09:00)
[2023-09-06 09:21] LABS: BASOPHILS % (AUTO) 0.4 % (0.0-2.0); EOSINOPHILS % (AUTO) 7.8 % (0.0-6.0); HEMATOCRIT 27 % (39-51); HEMOGLOBIN 8.3 g/dL (13.5-17.5); LYMPHOCYTES # (AUTO) 2.2 K/uL (0.8-4.8); LYMPHOCYTES % (AUTO) 16.9 % (20.0-44.0); MEAN CORPUSCULAR HEMOGLOBIN 27 PG (26.0-33.0); MEAN CORPUSCULAR HGB CONC 31 g/dl (31.0-36.0); MEAN CORPUSCULAR VOLUME 87 fL (80-96); MONOCYTES # (AUTO) 1.5 K/uL (0.1-1.30); MONOCYTES % (AUTO) 11.7 % (2.0-12.0); NEUTROPHILS # (AUTO) 8.3 K/uL (1.8-8.9); NEUTROPHILS % (AUTO) 63.2 % (43.0-81.0); PLATELET COUNT (AUTO) 264 K/uL (150-450); RED CELL DISTRIBUTION WIDTH 19.7 % (11.5-15.0); WHITE BLOOD COUNT (AUTO) 13.1 K/uL (4.3-11.0)
[2023-09-06] MEDS: NITROGLYCERIN 30 GM TUBE TP SCH ×2 (09:40→20:32)
[2023-09-06] MEDS: PANTOPRAZOLE 40 MG VIAL IV SCH (09:42)
[2023-09-06] MEDS: CHLORHEXIDINE GLUCONATE 15 ML UDC MM SCH ×2 (09:42→20:25)
[2023-09-06] MEDS: BUPRENORPHINE HCL 2 MG TAB.SUBL SL SCH ×3 (09:42→17:44)
[2023-09-06] MEDS: ENOXAPARIN SODIUM 40 MG/0.4 ML DISP.SYRIN SQ SCH (09:42)
[2023-09-06] MEDS: DAKINS QUARTER STRENGTH (0.125%) 480 ML BOTTLE TOP SCH (09:43)
[2023-09-06 12:00] VITALS: BP 140/79; TEMP 98.2; O2SAT 98
[2023-09-06] MEDS: diphenhydrAMINE HCL 50 MG/ML VIAL IV PRN (13:31)
[2023-09-06] MEDS: FAT EMULSION 20% 500 ML in PREMIX 1 EA IV SCH (14:14)
[2023-09-06] MEDS: DAPTOMYCIN 500 MG in IV NS 0.9% 50 ML IV SCH (14:14)
[2023-09-06 16:00] VITALS: BP 138/75; TEMP 98; O2SAT 97
[2023-09-06] MEDS: CYANOCOBALAMIN 500 MCG TABLET PO SCH (17:01)
[2023-09-06] MEDS: ASCORBIC ACID 500 MG TABLET PO SCH (17:01)
[2023-09-06] MEDS ORDERED: TPN BAG #11 IV SCH ×4 (19:08)
[2023-09-06 20:00] VITALS: BP 102/88; TEMP 98.4; O2SAT 99
[2023-09-06] MEDS: MIRTAZAPINE 15 MG TABLET PO SCH (21:25)
[2023-09-06] MEDS: SENNOSIDES 8.6 MG TABLET PO SCH (21:25)
[2023-09-07] VITALS: BP 103/76; TEMP 98.2; O2SAT 98
[2023-09-07] MEDS: HYDROMORPHONE 1 MG/1 ML DISP.SYRIN IV PRN ×2 (03:54→12:56)
[2023-09-07 04:00] VITALS: BP 112/78; TEMP 97.8; O2SAT 99
[2023-09-07] MEDS: TIZANIDINE HCL 4 MG TABLET PO SCH ×2 (04:38→13:00)
[2023-09-07] MEDS: QUETIAPINE FUMARATE 100 MG TABLET PO SCH ×2 (04:38→13:00)
[2023-09-07] MEDS: GABAPENTIN 300 MG CAPSULE PO SCH ×2 (04:38→13:00)
[2023-09-07] MEDS: METOPROLOL TARTRATE 50 MG TABLET GT SCH ×3 (05:28→18:00)
[2023-09-07] MEDS: BLOOD SUGAR DIAGNOSTIC 1 EACH STRIP IN SCH ×3 (05:38→18:10)
[2023-09-07] MEDS: INSULIN REGULAR, HUMAN 100 UNIT/ML 3 ML VIAL SQ PRN ×3 (05:39→18:08)
[2023-09-07 06:54] LABS: CALCIUM, SERUM 8.7 mg/dL (8.5-10.1); CREATININE 0.3 mg/dL (0.6-1.3); MAGNESIUM 1.8 mg/dL (1.8-2.4); PHOSPHORUS 3.2 mg/dL (2.5-4.9)
[2023-09-07] MEDS: LEVOTHYROXINE SODIUM 25 MCG TABLET PO SCH (07:30)
[2023-09-07 08:00] VITALS: BP 143/73; TEMP 97.5; O2SAT 99
[2023-09-07] MEDS: LIPASE/PROTEASE/AMYLASE 1 EACH CAPSULE.DR PO SCH ×3 (08:00→18:00)
[2023-09-07 08:45] LABS: BASOPHILS % (AUTO) 0.3 % (0.0-2.0); EOSINOPHILS # (AUTO) 1.1 K/uL (0.0-0.7); EOSINOPHILS % (AUTO) 7.3 % (0.0-6.0); HEMATOCRIT 28 % (39-51); HEMOGLOBIN 8.6 g/dL (13.5-17.5); LYMPHOCYTES # (AUTO) 1.9 K/uL (0.8-4.8); LYMPHOCYTES % (AUTO) 13.4 % (20.0-44.0); MEAN CORPUSCULAR HEMOGLOBIN 26 PG (26.0-33.0); MEAN CORPUSCULAR HGB CONC 31 g/dl (31.0-36.0); MEAN CORPUSCULAR VOLUME 87 fL (80-96); MONOCYTES # (AUTO) 1.8 K/uL (0.1-1.30); MONOCYTES % (AUTO) 12.8 % (2.0-12.0); NEUTROPHILS # (AUTO) 9.5 K/uL (1.8-8.9); NEUTROPHILS % (AUTO) 66.2 % (43.0-81.0); PLATELET COUNT (AUTO) 351 K/uL (150-450); RED BLOOD CELL COUNT(AUTO) 3.23 MIL/uL (4.5-6.0); RED CELL DISTRIBUTION WIDTH 19.4 % (11.5-15.0); WHITE BLOOD COUNT (AUTO) 14.4 K/uL (4.3-11.0)
[2023-09-07] MEDS: ASPIRIN EC 81 MG TABLET.DR PO SCH (09:00)
[2023-09-07] MEDS: CHOLECALCIFEROL 1,000 UNIT TABLET (VIT D3) PO SCH ×2 (09:00→18:00)
[2023-09-07] MEDS: POLYETHYLENE GLYCOL 3350 17 GM POWD.PACK PO SCH (09:00)
[2023-09-07] MEDS: DULOXETINE HCL 30 MG CAPSULE.DR PO SCH (09:00)
[2023-09-07] MEDS: HYDROCORTISONE 5 MG TABLET PO SCH ×2 (09:00→17:00)
[2023-09-07] MEDS: PANTOPRAZOLE 40 MG VIAL IV SCH (09:27)
[2023-09-07] MEDS: CHLORHEXIDINE GLUCONATE 15 ML UDC MM SCH (09:27)
[2023-09-07] MEDS: DAKINS QUARTER STRENGTH (0.125%) 480 ML BOTTLE TOP SCH (09:28)
[2023-09-07] MEDS: BUPRENORPHINE HCL 2 MG TAB.SUBL SL SCH ×3 (09:34→18:10)
[2023-09-07] MEDS: NITROGLYCERIN 30 GM TUBE TP SCH (09:51)
[2023-09-07] MEDS: ENOXAPARIN SODIUM 40 MG/0.4 ML DISP.SYRIN SQ SCH (09:54)
[2023-09-07] MEDS ORDERED: TPN BAG #12 IV SCH ×4 (10:00)
[2023-09-07 12:00] VITALS: BP 144/80; TEMP 97.3; O2SAT 97
[2023-09-07] MEDS: FAT EMULSION 20% 500 ML in PREMIX 1 EA IV SCH (14:40)
[2023-09-07] MEDS: DAPTOMYCIN 500 MG in IV NS 0.9% 50 ML IV SCH (14:55)
[2023-09-07 16:00] VITALS: BP 139/77; TEMP 97.5; O2SAT 98
[2023-09-07] MEDS: CYANOCOBALAMIN 500 MCG TABLET PO SCH (18:00)
[2023-09-07] MEDS: ASCORBIC ACID 500 MG TABLET PO SCH (18:00)
[2023-09-08] MEDS ORDERED: TPN BAG #13 IV SCH ×3 (00:45)
== END 2023-09-07 20:20 | disposition short-term general hospital (02) | DRG 853 ==
LOC: ER 17:03 → TELE1 19:38 → MEDSG1 08-14 12:59 → TELE1 08-15 14:21 → TELE-TD 08-17 09:09 → TELE1 08-20 14:39 → ICU 08-21 19:07 → TELE1 08-26 04:15 → TELE-TD 08-26 05:28 → TELE1 08-27 10:34
PROVIDERS: ADMIT Nurse Practitioner Acute Care; ATTEND Internal Medicine
PROC: 0PB40ZZ Excision of Thoracic Vertebra, Open Approach (ICD-10-PCS; 2023-08-12)
PROC: 5A1945Z Respiratory Ventilation, 24-96 Consecutive Hours (ICD-10-PCS; 2023-08-17)
PROC: 0PB40ZZ Excision of Thoracic Vertebra, Open Approach (ICD-10-PCS; 2023-08-21)
PROC: 5A1955Z Respiratory Ventilation, Greater than 96 Consecutive Hours (ICD-10-PCS; 2023-08-21)
PROC: 5A2204Z Restoration of Cardiac Rhythm, Single (ICD-10-PCS; 2023-08-21)
PROC: 05H933Z Insertion of Infusion Device into Right Brachial Vein, Percutaneous Approach (ICD-10-PCS; 2023-08-22)
PROC: 0DJ08ZZ Inspection of Upper Intestinal Tract, Via Natural or Artificial Opening Endoscopic (ICD-10-PCS; 2023-08-24)
PROC: 30233N1 Transfusion of Nonautologous Red Blood Cells into Peripheral Vein, Percutaneous Approach (ICD-10-PCS; 2023-08-25)
PROC: 0DN80ZZ Release Small Intestine, Open Approach (ICD-10-PCS; principal; 2023-08-26)
PROC: 0PB40ZZ Excision of Thoracic Vertebra, Open Approach (ICD-10-PCS; 2023-08-28)
PROC: 02HV33Z Insertion of Infusion Device into Superior Vena Cava, Percutaneous Approach (ICD-10-PCS; 2023-08-29)
PROC: B548ZZA Ultrasonography of Superior Vena Cava, Guidance (ICD-10-PCS; 2023-08-29)
DX: A41.9 Sepsis, unspecified organism (principal); J15.69 Pneumonia due to other Gram-negative bacteria; J96.20 Acute and chronic respiratory failure, unspecified whether with hypoxia or hypercapnia; E44.0 Moderate protein-calorie malnutrition; T81.30XA Disruption of wound, unspecified, initial encounter; F11.20 Opioid dependence, uncomplicated; I50.32 Chronic diastolic (congestive) heart failure; J98.11 Atelectasis; I47.10 Supraventricular tachycardia, unspecified; I48.20 Chronic atrial fibrillation, unspecified; M46.28 Osteomyelitis of vertebra, sacral and sacrococcygeal region; E87.20 Acidosis, unspecified; I11.0 Hypertensive heart disease with heart failure; Y83.8 Other surgical procedures as the cause of abnormal reaction of the patient, or of later complication, without mention of misadventure at the time of the procedure; Y92.9 Unspecified place or not applicable; Z20.822 Contact with and (suspected) exposure to COVID-19; K66.0 Peritoneal adhesions (postprocedural) (postinfection); K44.9 Diaphragmatic hernia without obstruction or gangrene; R13.10 Dysphagia, unspecified; Z93.0 Tracheostomy status; Z93.1 Gastrostomy status; I48.91 Unspecified atrial fibrillation; Z95.828 Presence of other vascular implants and grafts; Z88.5 Allergy status to narcotic agent; Z88.8 Allergy status to other drugs, medicaments and biological substances; Z98.890 Other specified postprocedural states; Z79.4 Long term (current) use of insulin; Z79.899 Other long term (current) drug therapy; Z79.82 Long term (current) use of aspirin; Z79.51 Long term (current) use of inhaled steroids; E78.5 Hyperlipidemia, unspecified; E88.09 Other disorders of plasma-protein metabolism, not elsewhere classified; G89.4 Chronic pain syndrome; I25.10 Atherosclerotic heart disease of native coronary artery without angina pectoris; I25.2 Old myocardial infarction; F41.9 Anxiety disorder, unspecified; J84.10 Pulmonary fibrosis, unspecified; F29 Unspecified psychosis not due to a substance or known physiological condition; S80.821A Blister (nonthermal), right lower leg, initial encounter; X58.XXXA Exposure to other specified factors, initial encounter; L89.159 Pressure ulcer of sacral region, unspecified stage; E11.69 Type 2 diabetes mellitus with other specified complication; D64.9 Anemia, unspecified; J98.4 Other disorders of lung; Y95 Nosocomial condition; Z74.01 Bed confinement status; Z86.16 Personal history of COVID-19; Z86.711 Personal history of pulmonary embolism; Z87.01 Personal history of pneumonia (recurrent); Z87.891 Personal history of nicotine dependence; Z90.49 Acquired absence of other specified parts of digestive tract; L89.899 Pressure ulcer of other site, unspecified stage
CPT/HCPCS: 31720; 36410; 36415; 36600; 71045-TC; 80048-TC; 80053-TC; 80061-TC; 80076-TC; 80202-TC; 81001; 82803-TC; 82962-TC; 83605-TC; 83735-TC; 83880; 84100-TC; 84439-TC; 84443-TC; 84478-TC; 84484-TC; 85025-TC; 85027-TC; 85378-TC; 85610-TC; 85652-TC; 85730-TC; 86140-TC; 86803; 86850-TC; 87040-TC; 87081-TC; 87086-TC; 87806; 92526; 92611-TC; 93307-TC; 94002-TC; 94003-TC; 94640-TC; 94664-TC; 94760-TC; 94762-TC; 94799-TC; 99082-TC; A4216; A4223; A4623; A6253; A6403; A7526; C9113; G0378; J0153; J0282; J0360; J0690; J0878; J1160; J1170; J1200; J1650; J1815; J1885; J1940; J2020; J2060; J2405; J2543; J3010; J3370; J3430; J3475; J3480; J3490; J7030; J7040; J7042; J7050; J7060; J7120; P9016; Q9967